=== PATIENT | female | born 1950 | race African-American/Black ===

== ENCOUNTER 2016-06-07 11:54 | Inpatient (IN) | payer MEDICARE, MEDICAID ==
[2016-06-07] MEDS ORDERED: MAGNESIUM SULFATE/D5W 1 GM/100 ML RTUPB IV ONE (12:07)
[2016-06-07] MEDS ORDERED: METHYLPREDNISOLONE INJ 125 MG/2 ML SDV ONE (12:07)
[2016-06-07] MEDS: MAGNESIUM SULFATE/D5W 100 ML IV SCH ×2 (12:10→15:14)
[2016-06-07] MEDS ORDERED: NORMAL SALINE 1000 ML 1,000 ML IV ONE ×2 (12:11→13:27)
--- NOTE | 2016-06-07 12:11 | ER Document Report ---
ED Respiratory Problem - General Mode of Arrival: Medic Information source: Patient, Emergency Med Personnel TRAVEL OUTSIDE OF THE [place] IN LAST 30 DAYS: No - HPI Patient complains to provider of: Other - Difficulty breathing Associated symptoms: Other - See above <HAILEY ZHANG - Last Filed: 06/07/16 13:29> <NUVIA JIMENEZ - Last Filed: 06/07/16 19:03> - General Chief Complaint: Breathing Difficulty Stated Complaint: DIFFICULTY BREATHING Notes: Patient is a 65 year old female, with a past medical history including lung cancer, COPD, and CHF, who presents to the emergency department complaining of breathing difficulty. Patient was at [facility] when staff report she became distressed and combative, when EMS arrived patient's sats were in the low 70s and she was anxious. Patient reports that she is very cold and denies any pain. (HAILEY ZHANG) - Related Data Allergies/Adverse Reactions: No Known Allergies Allergy (Verified 05/12/16 23:05) Home Medications: Current Home Medications Aspirin [Ecotrin 81 mg EC Tablet] 81 mg PO DAILY 06/07/16 [History] Canagliflozin [Invokana] 100 mg PO ACBRKFST 06/07/16 [History] Doxycycline Hyclate [Vibramycin 100 mg Tablet] 100 mg PO Q12 06/07/16 [History] Febuxostat [Uloric 80 mg Tablet] 80 mg PO DAILY 06/07/16 [History] Furosemide [Lasix 40 mg Tablet] 40 mg PO QAM 06/07/16 [History] Gabapentin 300 mg PO Q12 06/07/16 [History] Hydrocodone/Acetaminophen [Hydrocodon-Acetaminophen 5-325] 1 tab PO Q4HP PRN [History] Insulin Detemir [Levemir Flextouch] 30 units SQ DAILY 06/07/16 [History] Ipratropium/Albuterol Sulfate [Iprat-Albut 0.5-3(2.5) mg/3 ml] 3 ml NEB Q4HP PRN 06/07/16 [History] Lisinopril [Zestril] 2.5 mg PO DAILY 06/07/16 [History] Nitrofurantoin Monohyd/M-Cryst [Nitrofurantoin [place]-Mcr 100 mg] 100 mg PO Q12 [History] Nystatin [Mycostatin Cream 15 gm] 1 applic TOP BID 06/07/16 [History] Potassium Chloride [Klor-Con 10 Meq Tablet.sa] 20 meq PO Q12 06/07/16 [History] Prednisone 40 mg PO DAILY 06/07/16 [History] Tramadol HCl [Ultram 50 mg Tablet] 25 mg PO Q6HP PRN 06/07/16 [History] Past Medical History - General Information source: Patient, [facility] Records - Social History Smoking Status: Unknown if Ever Smoked Family History: Reviewed & Not Pertinent, CAD, DM, Other - Past Medical History Cardiac Medical History: Reports: Hx Congestive Heart Failure, Hx DVT - Distant history of same, Hx Hypercholesterolemia, Hx Hypertension Pulmonary Medical History: Reports: Hx Asthma - neb,inhalers, Hx Bronchitis, Hx COPD, Hx Pneumonia - hx of Endocrine Medical History: Reports: Hx Diabetes Mellitus Type 1 Renal/ Medical History: Reports: Hx End Stage Renal Disease Malignancy Medical History: Reports: Hx Lung Cancer GI Medical History: Reports: Hx Gastroesophageal Reflux Disease, Hx Ulcer Musculoskeltal Medical History: Reports Hx Arthritis - gout, Reports Hx Gout Skin Medical History: Reports Hx Cellulitis Past Surgical History: Reports: Hx Abdominal Surgery - hernia repair, Hx Section - 2 times, Hx Herniorrhaphy - Incisional hernia repair, recurrence of the umbilicus hernia. - Immunizations Hx Diphtheria, Pertussis, Tetanus Vaccination: No Hx Pneumococcal Vaccination: 08/13/10 <HAILEY ZHANG - Last Filed: 06/07/16 13:29> Review of Systems - Review of Systems Constitutional: See HPI, Chills EENT: No symptoms reported Cardiovascular: No symptoms reported Respiratory: See HPI, Other - Difficulty breathing. denies: Hurts to breathe Gastrointestinal: No symptoms reported Genitourinary: No symptoms reported Female Genitourinary: No symptoms reported Musculoskeletal: No symptoms reported Skin: No symptoms reported Hematologic/Lymphatic: No symptoms reported Neurological/Psychological: No symptoms reported -: Yes All other systems reviewed and negative <HAILEY ZHANG - Last Filed: 06/07/16 13:29> Physical Exam - Vital signs Interpretation: Tachycardic, Hypoxic, Other - extremis - General General appearance: Alert In distress: Severe - Respiratory - HEENT Head: Normocephalic, Atraumatic - Respiratory Respiratory status: Respiratory distress Chest status: Nontender Breath sounds: Decreased air movement, Wheezing - Expiratory bilaterally Chest palpation: Normal - Cardiovascular Rhythm: Tachycardia Heart sounds: Normal auscultation Murmur: No - Abdominal Inspection: Normal Distension: No distension Bowel sounds: Normal Tenderness: Nontender Organomegaly: No organomegaly - Back Back: Normal, Nontender - Neurological Neuro grossly intact: Yes Cognition: Normal Orientation: AAOx4 Rosine Coma Scale Eye Opening: Spontaneous Dottie Coma Scale Verbal: Oriented Dottie Coma Scale Motor: Obeys Commands Dottie Coma Scale Total: 15 Speech: Normal - Psychological Associated symptoms: Normal affect, Normal mood - Skin Skin Color: Pale <HAILEY ZHANG - Last Filed: 06/07/16 13:29> Course - Laboratory Result Diagrams: 06/07/16 12:10 06/07/16 12:10 <HAILEY ZHANG - Last Filed: 06/07/16 13:29> - Laboratory Result Diagrams: 06/07/16 12:10 06/07/16 12:10 <NUVIA JIMENEZ - Last Filed: 06/07/16 19:03> - Re-evaluation Re-evalutation: 06/07/16 Patient is a 65-year-old female who presented with severe respiratory distress. Patient has a history of COPD, CHF, and lung cancer. Patient was placed on BiPAP, given DuoNeb, Solu-Medrol, and magnesium. Considered intubating the patient due to her severe distress and drowsiness, but patient improved with BiPAP and medications. Patient was initially hypotensive. Port had been accessed prior to arrival. Port was reaccessed with a 20-gauge IV. Surgery had been consult for central line but due to better accessed report, this was canceled. Patient was started on antibiotics for her fever and probable pneumonia. Patient was discussed with the hospital service. She will be admitted to the [facility]. This is been discussed with the patient and family at length. Grateful for care. (NUVIA JIMENEZ) - Vital Signs Vital signs: Temp Pulse Resp BP Pulse Ox 98.7 F 130 H 32 H 100/56 L 99 06/07/16 18:42 06/07/16 12:30 06/07/16 18:42 06/07/16 18:42 06/07/16 18:42 (NUVIA JIMENEZ) - Laboratory Laboratory results interpreted by me: 06/07/16 06/07/16 06/07/16 12:10 12:10 12:10 WBC 15.7 H RBC 3.24 L Hgb 8.8 L Hct 29.0 L MCHC 30.4 L RDW 22.3 H Band Neutrophils % 1 L Metamyelocytes % 2 H Promyelocytes % 1 H Abs Neuts (Manual) 10.0 H ABG pO2 ABG Total CO2 ABG O2 Saturation Chloride 97 L Anion Gap 22 H BUN 51 H Creatinine 2.73 H Est GFR ( Amer) 21 L Est GFR (Non-Af Amer) 17 L Glucose 124 H Lactic Acid 8.3 H Alkaline Phosphatase 177 H Creatine Kinase 26 L Albumin 3.4 L Urine Protein Urine Glucose (UA) Urine Ketones Ur Leukocyte Esterase 06/07/16 06/07/16 06/07/16 12:50 16:16 16:35 WBC RBC Hgb Hct MCHC RDW Band Neutrophils % Metamyelocytes % Promyelocytes % Abs Neuts (Manual) ABG pO2 432.6 H ABG Total CO2 26.9 H ABG O2 Saturation 99.8 H Chloride Anion Gap BUN Creatinine Est GFR ( Amer) Est GFR (Non-Af Amer) Glucose Lactic Acid 2.2 H Alkaline Phosphatase Creatine Kinase Albumin Urine Protein 30 H Urine Glucose (UA) 150 H Urine Ketones TRACE H Ur Leukocyte Esterase MODERATE H (NUVIA JIMENEZ) Critical Care Note - Critical Care Note Total time excluding time spent on procedures (mins): 120 - evaluation and management of respiratory distress, multiple re-evaluations, management of hypotension,, management of fever, coordination of admission, counseling of patient and family <NUVIA JIMENEZ - Last Filed: 06/07/16 19:03> Discharge <HAILEY ZHANG - Last Filed: 06/07/16 13:29> - Discharge Admitting Provider: Di Ordonez Unit Admitted: [facility] <NUVIA JIMENEZ - Last Filed: 06/07/16 19:03> - Discharge Clinical Impression: COPD exacerbation, Respiratory distress ARF (acute renal failure) Qualifiers: Acute renal failure type: unspecified Qualified Code(s): N17.9 - Acute kidney failure, unspecified Lung cancer Qualifiers: Laterality: unspecified laterality Lung location: unspecified part of lung Qualified Code(s): C34.90 - Malignant neoplasm of unspecified part of unspecified bronchus or lung CHF exacerbation Qualifiers: Congestive heart failure type: unspecified congestive heart failure type Qualified Code(s): I50.9 - Heart failure, unspecified Pneumonia Qualifiers: Pneumonia type: due to unspecified organism Laterality: unspecified laterality Lung location: unspecified part of lung Qualified Code(s): J18.9 - Pneumonia, unspecified organism Condition: Stable Disposition: ADMITTED INPATIENT Scribe Attestation: 06/07/16 19:03 I personally performed the services described in the documentation, reviewed and edited the documentation which was dictated to the scribe in my presence, and it accurately records my words and actions. (NUVIA JIMENEZ) Scribe Documentation - Scribe Written by Scribe:: Hailey Zhang 06/07/16 acting as scribe for :: Sam <HAILEY ZHANG - Last Filed: 06/07/16 13:29>
[2016-06-07] MEDS ORDERED: ETOMIDATE INJ/PF 20 MG/10 ML SDV IV ONE (12:20)
[2016-06-07] MEDS ORDERED: IPRATROPIUM/ALBUTEROL 0.5-2.5 MG/3 ML AMPUL NEB ONE (12:26)
[2016-06-07] MEDS ORDERED: METHYLPREDNISOLONE INJ 125 MG/2 ML SDV IV ONE (12:26)
[2016-06-07 12:31] LABS: HEMOGLOBIN 8.8 g/dL (12.0-15.5); HGB HCT DIFFERENCE -2.6; MEAN CORPUSCULAR HEMOGLOBIN 27.2 pg (27.0-33.4); MEAN CORPUSCULAR HGB CONC 30.4 g/dL (32.0-36.0); MEAN CORPUSCULAR VOLUME 89 fl (80-97); RED BLOOD COUNT 3.24 10^6/uL (3.72-5.28); RED CELL DISTRIBUTION WIDTH 22.3 % (11.5-14.0); WHITE BLOOD COUNT 15.7 10^3/uL (4.0-10.5)
[2016-06-07 12:34] LABS: PROTHROMBIN TIME 15.2 SEC (11.4-15.4)
[2016-06-07 12:48] LABS: ANISOCYTOSIS 3+; BAND NEUTROPHILS % (MANUAL) 1 % (3-5); BASOPHILS % (MANUAL) 0 % (0-2); EOSINOPHILS % (MANUAL) 0 % (0-6); HYPOCHROMASIA 1+; LYMPHOCYTES % (MANUAL) 28 % (13-45); OVALOCYTES 2+; PLATELET CLUMPS PRESENT; POIKILOCYTOSIS 2+; POLYCHROMASIA SLIGHT; ROULEAUX SLIGHT; TOTAL CELLS COUNTED 100; TOXIC GRANULATION 1+; TOXIC VACUOLATION PRESENT
[2016-06-07] MEDS ORDERED: CEFEPIME 2 GM/D5W RTU 50 ML IV ONE (12:53)
[2016-06-07] MEDS ORDERED: LEVOFLOXACIN 750 MG/D5W RTU 150 ML IV ONE ×2 (12:53→13:51)
[2016-06-07 12:54] LABS: CREATINE KINASE MB 0.43 ng/mL (<4.55)
[2016-06-07 12:56] LABS: ALANINE AMINOTRANSFERASE 19 U/L (9-52); ALBUMIN 3.4 g/dL (3.5-5.0); ALKALINE PHOSPHATASE 177 U/L (38-126); ASPARTATE AMINO TRANSFERASE 35 U/L (14-36); BILIRUBIN,TOTAL 0.9 mg/dL (0.2-1.3); BLOOD UREA NITROGEN 51 mg/dL (7-20); CALCIUM 9.2 mg/dL (8.4-10.2); CARBON DIOXIDE 25 mmol/L (22-30); CHLORIDE 97 mmol/L (98-107); CREATINE KINASE 26 U/L (30-135); CREATININE RESULT 2.73 mg/dL (0.52-1.25); GLUCOSE 124 mg/dL (75-110); POTASSIUM 4.2 mmol/L (3.6-5.0); TOTAL PROTEIN 7.6 g/dL (6.3-8.2); TROPONIN I 0.04 ng/mL
[2016-06-07 13:03] LABS: ARTERIAL BLOOD BASE EXCESS 0.1 mmol/L; ARTERIAL BLOOD O2 SATURATION 99.8 % (94-98)
[2016-06-07 13:08] LABS: ANION GAP 22 (5-19); SODIUM 143.7 mmol/L (137-145)
--- NOTE | 2016-06-07 13:10 | EKG REPORT ---
SEVERITY:- ABNORMAL ECG - SINUS TACHYCARDIA BORDERLINE ST ELEVATION, INFERIOR LEADS , CLINICAL CORRELATION NEEDED. BORDERLINE PROLONGED QT INTERVAL : Confirmed by: Joss Senior MD 07-Jun-2016 13:10:33
[2016-06-07] MEDS ORDERED: VANCOMYCIN HCL INJ 1000 MG VIAL IV ONE (13:51)
[2016-06-07] MEDS ORDERED: CEFEPIME 1 GM/D5W RTU 50 ML IV ONE (13:51)
[2016-06-07] MEDS ORDERED: CEFEPIME HCL 2 GM in DEXTROSE 5%-WATER 50 ML IV ONE (14:00)
[2016-06-07 16:38] LABS: APPEARANCE,URINE CLOUDY; BILIRUBIN,URINE NEGATIVE (NEGATIVE); GLUCOSE, URINE 150 mg/dL (NEGATIVE); KETONES,URINE TRACE mg/dL (NEGATIVE); LEUKOCYTE ESTERASE,URINE MODERATE (NEGATIVE); NITRITE,URINE NEGATIVE (NEGATIVE); PROTEIN,URINE 30 mg/dL (NEGATIVE); URINE SPECIFIC GRAVITY 1.019; UROBILINOGEN,URINE NEGATIVE mg/dL (<2.0)
[2016-06-07] MEDS ORDERED: ACETAMINOPHEN 325 MG TABLET PO PRN (17:08)
[2016-06-07] MEDS ORDERED: NORMAL SALINE 1000 ML 1,000 ML IV PRN (17:08)
[2016-06-07] MEDS ORDERED: DEXTROSE 5%-WATER 250 ML with NOREPINEPHRINE BITARTRATE 4 MG IV PRN ×2 (17:17)
[2016-06-07] MEDS ORDERED: GLUCAGON,HUMAN RECOMB 1 MG INJ IM PRN (17:25)
[2016-06-07] MEDS ORDERED: DEXTROSE 50%-WATER 25 GM/50 ML DISP.SYRIN IV PRN ×2 (17:25)
[2016-06-07] MEDS ORDERED: DEXTROSE 40% GEL 15 GM TUBE PO PRN ×2 (17:25)
[2016-06-07] MEDS ORDERED: NOREPINEPHRINE BITARTRATE INJ/PF 4 MG/4 ML SDV IV ONE (17:37)
--- NOTE | 2016-06-07 17:44 | PDOC H&P ---
History of Present Illness Admission Date/PCP: 06/07/16 15:12 MARQUIS JADE Patient complains of: Shortness of breath History of Present Illness: SAL MEDEL is a 65 year old female with history of COPD, lung cancer stage III , diastolic heart failure, recently discharged from the hospital for pneumonia and sepsis brought to the emergency room because of shortness of breath. The patient was discharged to weeks ago for pneumonia and sepsis and patient reports that she is feeling better. She has chronic shortness of breath especially on exertion. Family reports that she has not really gotten any better. There is no wheezing. Shortness of breath is about the same as well as cough with scanty yellowish phlegm. There is no pleurisy. No fever or sweating noted as well. Patient sustained a fall 2 days ago without significant injury. The patient has complained of back pain and was seen in the emergency room where she was diagnosed of a UTI and reportedly given antibiotics. She just completed antibiotics for the pneumonia. She went to the oncology clinic for her chemotherapy, apparently patient found to be hypotensive and tachycardic and reportedly having shortness of breath and therefore the patient was sent to the emergency room. Patient was given 2-3 L of saline bolus and blood pressures in the low normal side. She was hypoxic O2 sat in the 80s and was placed on BiPAP. WBC was elevated but she is on steroids. Lactic acid level was high. Broad-spectrum antibiotic was administered and the patient was referred for admission. Past Medical History Cardiac Medical History: Reports: Congestive Heart Failure, DVT - Distant history of same, Hyperlipidema, Hypertension Denies: Coronary Artery Disease, Myocardial Infarction, Pulmonary Embolism Pulmonary Medical History: Reports: Asthma - neb,inhalers, Bronchitis, Chronic Obstructive Pulmonary Disease (COPD), Pneumonia - hx of Denies: Respiratory Failure, Sleep Apnea, Tuberculosis Neurological Medical History: Denies: Seizures Endocrine Medical History: Reports: Diabetes Mellitus Type 1 Denies: Diabetes Mellitus Type 2 Renal/ Medical History: Reports: End Stage Renal Disease Malignancy Medical History: Reports: Lung Cancer GI Medical History: Reports: Gastroesophageal Reflux Disease Denies: Cirrhosis, Hepatitis Musculoskeltal Medical History: Reports: Arthritis - gout, Gout Psychiatric Medical History: Denies: Depression Hematology: Reports: Anemia, Bleeding Tendencies Past Surgical History Past Surgical History: Reports: Section - 2 times, Herniorrhaphy - Incisional hernia repair, recurrence of the umbilicus hernia. Denies: Amputation Social History Smoking Status: Unknown if Ever Smoked Frequency of Alcohol Use: None Hx Recreational Drug Use: No Drugs: None Hx Prescription Drug Abuse: No Family History Family History: CAD, DM, Other Parental Family History Reviewed: Yes Children Family History Reviewed: Yes Sibling(s) Family History Reviewed.: Yes Medication/Allergy Home Medications: Aspirin [Ecotrin 81 mg EC Tablet] 81 mg PO DAILY 06/07/16 Canagliflozin [Invokana] 100 mg PO ACBRKFST 06/07/16 Doxycycline Hyclate [Vibramycin 100 mg Tablet] 100 mg PO Q12 06/07/16 Febuxostat [Uloric 80 mg Tablet] 80 mg PO DAILY 06/07/16 Furosemide [Lasix 40 mg Tablet] 40 mg PO QAM 06/07/16 Gabapentin 300 mg PO Q12 06/07/16 Hydrocodone/Acetaminophen [Hydrocodon-Acetaminophen 5-325] 1 tab PO Q4HP PRN Insulin Detemir [Levemir Flextouch] 30 units SQ DAILY 06/07/16 Ipratropium/Albuterol Sulfate [Iprat-Albut 0.5-3(2.5) mg/3 ml] 3 ml NEB Q4HP PRN 06/07/16 Lisinopril [Zestril] 2.5 mg PO DAILY 06/07/16 Nitrofurantoin Monohyd/M-Cryst [Nitrofurantoin [place]-Mcr 100 mg] 100 mg PO Q12 Nystatin [Mycostatin Cream 15 gm] 1 applic TOP BID 06/07/16 Potassium Chloride [Klor-Con 10 Meq Tablet.sa] 20 meq PO Q12 06/07/16 Prednisone 40 mg PO DAILY 06/07/16 Tramadol HCl [Ultram 50 mg Tablet] 25 mg PO Q6HP PRN 06/07/16 Allergies/Adverse Reactions: No Known Allergies Allergy (Verified 05/12/16 23:05) Review of Systems Constitutional: PRESENT: fever(s). ABSENT: chills, headache(s), night sweats, weight gain, weight loss Eyes: ABSENT: visual disturbances Ears: ABSENT: hearing changes Nose, Mouth, and Throat: ABSENT: mouth pain, sore throat Cardiovascular: PRESENT: dyspnea on exertion - Chronic, edema - Chronic. ABSENT : chest pain, orthropnea, palpitations Respiratory: PRESENT: cough - Chronic, dyspnea, sputum. ABSENT: hemoptysis Gastrointestinal: ABSENT: abdominal pain, constipation, diarrhea, hematemesis, hematochezia, melena, nausea, vomiting Genitourinary: ABSENT: difficulty urinating, dysuria, hematuria Musculoskeletal: PRESENT: back pain - Mainly on the left. ABSENT: joint swelling Integumentary: ABSENT: pruritus, rash, wounds - Prior decubitus ulcer reported has healed Neurological: ABSENT: abnormal gait, abnormal speech, confusion, dizziness, focal weakness, syncope Psychiatric: ABSENT: anxiety, depression, homidical ideation, suicidal ideation Endocrine: ABSENT: cold intolerance, heat intolerance, polydipsia, polyphagia, polyuria Hematologic/Lymphatic: PRESENT: easy bruising. ABSENT: easy bleeding Physical Exam Vital Signs: Temp Pulse Resp BP Pulse Ox 99.0 F 130 H 33 H 101/73 100 06/07/16 16:50 06/07/16 12:30 06/07/16 16:50 06/07/16 16:50 06/07/16 16:40 General appearance: PRESENT: no acute distress, morbidly obese, other - On BiPAP Head exam: PRESENT: atraumatic, normocephalic Eye exam: PRESENT: conjunctiva pink, EOMI, PERRLA. ABSENT: scleral icterus Ear exam: PRESENT: normal external ear exam. ABSENT: drainage Mouth exam: PRESENT: dry mucosa, neck supple, tongue midline Teeth exam: PRESENT: poor dentation Throat exam: ABSENT: post pharyngeal erythema, tonsillar erythema Neck exam: ABSENT: carotid bruit, JVD, lymphadenopathy, thyromegaly Respiratory exam: PRESENT: decreased breath sounds, rhonchi - few bilateral. ABSENT: rales, wheezes Cardiovascular exam: PRESENT: RRR, tachycardia. ABSENT: diastolic murmur, rubs , systolic murmur Pulses: PRESENT: normal dorsalis pedis pul Vascular exam: PRESENT: normal capillary refill GI/Abdominal exam: PRESENT: distended - Obese, normal bowel sounds, soft. ABSENT: guarding, mass, organolmegaly, rebound, tenderness Rectal exam: PRESENT: deferred Extremities exam: PRESENT: full ROM, +1 edema. ABSENT: calf tenderness, clubbing Neurological exam: PRESENT: alert, awake, oriented to situation Psychiatric exam: PRESENT: appropriate affect, normal mood. ABSENT: homicidal ideation, suicidal ideation Skin exam: PRESENT: dry, intact, warm. ABSENT: cyanosis, rash Results Laboratory Results: 06/07/16 06/07/16 16:16 16:35 Lactic Acid 2.2 H Urine Color YELLOW Urine Appearance CLOUDY Urine pH 5.0 Ur Specific [place] 1.019 Urine Protein 30 H Urine Glucose (UA) 150 H Urine Ketones TRACE H Urine Blood NEGATIVE Urine Nitrite NEGATIVE Ur Leukocyte Esterase MODERATE H Urine WBC (Auto) 52 Urine RBC (Auto) 1 Impressions: Chest X-Ray 06/07/16 12:12 IMPRESSION: CARDIAC ENLARGEMENT. VASCULAR CONGESTION. ASYMMETRIC HAZY DENSITY IN THE LEFT HEMITHORAX PROBABLY DUE TO MILD ASYMMETRIC PULMONARY EDEMA AND/OR PLEURAL EFFUSION. Assessment & Plan - Diagnosis (1) Acute on chronic respiratory failure with hypoxemia Is this a current diagnosis for this admission?: Yes (2) Pneumonia Qualifiers: Pneumonia type: due to unspecified organism Laterality: unspecified laterality Lung location: unspecified part of lung Qualified Code(s) : J18.9 - Pneumonia, unspecified organism Is this a current diagnosis for this admission?: Yes (3) Sepsis Qualifiers: Sepsis type: sepsis due to unspecified organism Qualified Code(s): A41.9 - Sepsis, unspecified organism Is this a current diagnosis for this admission?: Yes (4) Hypotension Qualifiers: Hypotension type: unspecified hypotension type Qualified Code(s): I95.9 - Hypotension, unspecified Is this a current diagnosis for this admission?: Yes (5) TIMO (acute kidney injury) Is this a current diagnosis for this admission?: Yes (6) Anemia Qualifiers: Anemia type: unspecified type Qualified Code(s): D64.9 - Anemia, unspecified Is this a current diagnosis for this admission?: Yes (7) COPD (chronic obstructive pulmonary disease) Qualifiers: COPD type: emphysema Emphysema type: unspecified Qualified Code( s): J43.9 - Emphysema, unspecified Is this a current diagnosis for this admission?: Yes (8) Hip pain Qualifiers: Laterality: left Qualified Code(s): M25.552 - Pain in left hip Is this a current diagnosis for this admission?: Yes (9) Hypertension Qualifiers: Hypertension type: essential hypertension Qualified Code(s): I10 - Essential (primary) hypertension Is this a current diagnosis for this admission?: Yes (10) Morbid obesity with BMI of 45.0-49.9, adult Is this a current diagnosis for this admission?: Yes (11) Diabetes mellitus Qualifiers: Diabetes mellitus type: type 2 Diabetes mellitus complication status: with unspecified complications Diabetes mellitus intermediate frame tender insulin use: with detention use Qualified Code(s): E11.8 - Type 2 diabetes mellitus with unspecified complications; Z79.4 - snf (current) use of insulin Is this a current diagnosis for this admission?: Yes (12) GERD (gastroesophageal reflux disease) Qualifiers: Esophagitis presence: without esophagitis Qualified Code(s): K21.9 - Gastro-esophageal reflux disease without esophagitis Is this a current diagnosis for this admission?: Yes (13) Chronic CHF Qualifiers: Congestive heart failure type: diastolic Qualified Code(s): I50.32 - Chronic diastolic (congestive) heart failure Is this a current diagnosis for this admission?: Yes (14) Hyperlipidemia Qualifiers: Hyperlipidemia type: unspecified Qualified Code(s): E78.5 - Hyperlipidemia, unspecified Is this a current diagnosis for this admission?: Yes (15) Obstructive sleep apnea Is this a current diagnosis for this admission?: Yes (16) Lung cancer Qualifiers: Laterality: unspecified laterality Lung location: unspecified part of lung Qualified Code(s): C34.90 - Malignant neoplasm of unspecified part of unspecified bronchus or lung Is this a current diagnosis for this admission?: Yes - Time Time Spent: 50 to 70 Minutes Anticipated discharge: Home, Home with Homehealth - Inpatient Certification Based on my medical assessment, after consideration of the patient's comorbidities, presenting symptoms, or acuity I expect that the services needed warrant INPATIENT care.: Yes I certify that my determination is in accordance with my understanding of Medicare's requirements for reasonable and necessary INPATIENT services [42 CFR 412.3e].: Yes Medical Necessity: Failure to Improve With Outpatient Therapy, Need Close Monitoring Due to Risk of Patient Decompensation, Need For IV Fluids, Need For Continuous Telemetry Monitoring, Need for IV Antibiotics, Risk of Complication if Not Cared For in Hospital Post Hospital Care: D/C Clinic Office Coordinator Documentation - Plan Summary Plan Summary: The patient will be admitted to ICU. We will begin levophed for hypotension. We will continue normal saline hydration and monitor creatinine. We will send cultures and begin the patient on broad-spectrum antibiotic with cefepime and Levaquin. We will obtain a CT scan of the chest to better define the patient's infiltrate. She will be on DVT prophylaxis with heparin and BiPAP to continue and morphine per respiratory protocol. I will continue the patient's steroids. Add nebulizers. We will hold antihypertensive medications. We will obtain a renal ultrasound. Further testing depends on the initial evaluation as outlined above.
[2016-06-07] MEDS: IPRATROPIUM/ALBUTEROL 0.5-2.5 MG/3 ML AMPUL NEB SCH (20:38)
[2016-06-07 21:00] LABS: VENOUS BLOOD BASE EXCESS 2.8 mmol/L; VENOUS BLOOD HCO3 29.1 mmol/L (20-32); VENOUS BLOOD PCO2 54.6 mmHg (35-63); VENOUS BLOOD PH 7.35 (7.30-7.42)
[2016-06-07] MEDS ORDERED: CEFEPIME HCL 2 GM in DEXTROSE 5%-WATER 50 ML IV SCH (22:00)
[2016-06-07] MEDS ORDERED: CEFEPIME 2 GM/D5W RTU 50 ML IV SCH (22:00)
[2016-06-08] MEDS: GUAIFENESIN 600 MG TABLET.SA PO SCH ×3 (00:10→22:35)
[2016-06-08] MEDS: GABAPENTIN 300 MG CAPSULE PO SCH ×3 (00:10→22:35)
[2016-06-08] MEDS: HEPARIN SOD (PORCINE) 5,000 UNIT/ML 1 ML SYRINGE SUBCUT SCH ×4 (00:10→22:35)
[2016-06-08 01:57] LABS: VENOUS BLOOD BASE EXCESS 1.6 mmol/L; VENOUS BLOOD HCO3 28.2 mmol/L (20-32); VENOUS BLOOD PCO2 54.2 mmHg (35-63); VENOUS BLOOD PH 7.33 (7.30-7.42)
[2016-06-08] MEDS: IPRATROPIUM/ALBUTEROL 0.5-2.5 MG/3 ML AMPUL NEB SCH ×4 (02:20→20:18)
[2016-06-08] MEDS: HYDROCODONE/ACETAMINOPHEN 5-325 MG TABLET PO PRN (03:20)
[2016-06-08] MEDS: LANSOPRAZOLE 30 MG TAB.RAP.DR PO SCH ×2 (06:25→18:35)
[2016-06-08 07:59] LABS: HGB HCT DIFFERENCE -1.2; MEAN CORPUSCULAR HEMOGLOBIN 27.3 pg (27.0-33.4); MEAN CORPUSCULAR HGB CONC 31.5 g/dL (32.0-36.0); MEAN CORPUSCULAR VOLUME 87 fl (80-97); RED BLOOD COUNT 2.78 10^6/uL (3.72-5.28); RED CELL DISTRIBUTION WIDTH 21.7 % (11.5-14.0); VENOUS BLOOD BASE EXCESS 2.1 mmol/L; VENOUS BLOOD HCO3 27.9 mmol/L (20-32); VENOUS BLOOD PCO2 49.1 mmHg (35-63); VENOUS BLOOD PH 7.37 (7.30-7.42); WHITE BLOOD COUNT 12.6 10^3/uL (4.0-10.5)
[2016-06-08 08:05] LABS: HEMOGLOBIN 7.6 g/dL (12.0-15.5)
[2016-06-08 08:20] LABS: ANISOCYTOSIS 2+; BAND NEUTROPHILS % (MANUAL) 1 % (3-5); BASOPHILS % (MANUAL) 0 % (0-2); EOSINOPHILS % (MANUAL) 0 % (0-6); HYPOCHROMASIA 2+; LYMPHOCYTES % (MANUAL) 3 % (13-45); NUCLEATED RED BLOOD CELLS 1 /100 WBC (0); OVALOCYTES 1+; POIKILOCYTOSIS 1+; POLYCHROMASIA SLIGHT; ROULEAUX SLIGHT; TOTAL CELLS COUNTED 100; TOXIC GRANULATION SLIGHT
[2016-06-08 08:25] LABS: ANION GAP 13 (5-19); BLOOD UREA NITROGEN 52 mg/dL (7-20); CALCIUM 8.7 mg/dL (8.4-10.2); CARBON DIOXIDE 28 mmol/L (22-30); CHLORIDE 104 mmol/L (98-107); CREATININE RESULT 2.12 mg/dL (0.52-1.25); GLUCOSE 144 mg/dL (75-110); POTASSIUM 3.8 mmol/L (3.6-5.0)
[2016-06-08] MEDS ORDERED: NORMAL SALINE 250 ML IV PRN ×2 (08:29)
[2016-06-08] MEDS ORDERED: NORMAL SALINE 1000 ML 1,000 ML IV PRN (08:29)
[2016-06-08] MEDS ORDERED: FUROSEMIDE INJ/PF 40 MG/4 ML SDV IV PRN (08:29)
--- NOTE | 2016-06-08 08:43 | PDOC PROGRESS REPORT ---
Subjective Progress Note for:: 06/08/16 Subjective:: Feeling better this morning. Able to tolerate oral intake off the BiPAP. Patient is off levophed. Reportedly the medication was not utilized. No reported temperature spikes or diarrhea. Patient denies any discomfort at this time. Physical Exam Vital Signs: Temp Pulse Resp BP Pulse Ox 97.2 F 93 26 H 113/72 100 06/08/16 08:05 06/08/16 08:00 06/08/16 08:00 06/08/16 03:00 06/08/16 08:00 Pulse Oximeter Continuous Start: 06/07/16 17: 09 Freq: RTQ4 Status: Active Document 06/08/16 08:00 [facility] (Rec: 06/08/16 08:14 [facility] [email or web address]) Pulse Oximetry Assessment Oxygen Saturation (92-100) 100 Oxygen Flow Rate (L/min) 4 Oxygen Delivery Method Nasal Cannula Equipment Usage Equipment Standby Continuous SpO2 Machine # - General appearance: PRESENT: no acute distress, cooperative, morbidly obese Head exam: PRESENT: normocephalic Eye exam: PRESENT: EOMI Mouth exam: PRESENT: dry mucosa, neck supple Neck exam: ABSENT: JVD Respiratory exam: PRESENT: rhonchi - Scattered bilateral, unlabored. ABSENT: wheezes Cardiovascular exam: PRESENT: RRR. ABSENT: gallop GI/Abdominal exam: PRESENT: distended - Obese, hypoactive bowel sounds, soft. ABSENT: tenderness Extremities exam: PRESENT: +1 edema Neurological exam: PRESENT: alert, awake Skin exam: PRESENT: dry, warm. ABSENT: cyanosis Results Laboratory Results: 06/08/16 07:45 06/08/16 07:45 06/07/16 06/07/16 06/08/16 17:45 20:35 01:46 WBC RBC Hgb Hct MCV MCH MCHC RDW Plt Count Seg Neutrophils % Lymphocytes % Monocytes % Eosinophils % Basophils % Absolute Neutrophils Absolute Lymphocytes Absolute Monocytes Absolute Eosinophils Absolute Basophils Carbonic Acid Cancelled HCO3/H2CO3 Ratio Cancelled ABG pH Cancelled ABG pCO2 Cancelled ABG pO2 Cancelled ABG HCO3 Cancelled ABG O2 Saturation Cancelled ABG Base Excess Cancelled VBG pH 7.35 7.33 VBG pCO2 54.6 54.2 VBG HCO3 29.1 28.2 VBG Base Excess 2.8 1.6 FiO2 Cancelled Sodium Potassium Chloride Carbon Dioxide Anion Gap BUN Creatinine Est GFR ( Amer) Est GFR (Non-Af Amer) Glucose Calcium 06/08/16 06/08/16 06/08/16 07:45 07:45 07:45 WBC 12.6 H RBC 2.78 L Hgb 7.6 L Hct 24.0 L MCV 87 MCH 27.3 MCHC 31.5 L RDW 21.7 H Plt Count 186 Seg Neutrophils % Not Reportable Lymphocytes % Not Reportable Monocytes % Not Reportable Eosinophils % Not Reportable Basophils % Not Reportable Absolute Neutrophils Not Reportable Absolute Lymphocytes Not Reportable Absolute Monocytes Not Reportable Absolute Eosinophils Not Reportable Absolute Basophils Not Reportable Carbonic Acid HCO3/H2CO3 Ratio ABG pH ABG pCO2 ABG pO2 ABG HCO3 ABG O2 Saturation ABG Base Excess VBG pH 7.37 VBG pCO2 49.1 VBG HCO3 27.9 VBG Base Excess 2.1 FiO2 Sodium 145.0 Potassium 3.8 Chloride 104 Carbon Dioxide 28 Anion Gap 13 BUN 52 H Creatinine 2.12 H Est GFR ( Amer) 28 L Est GFR (Non-Af Amer) 23 L Glucose 144 H Calcium 8.7 Impressions: Chest X-Ray 06/07/16 12:12 IMPRESSION: CARDIAC ENLARGEMENT. VASCULAR CONGESTION. ASYMMETRIC HAZY DENSITY IN THE LEFT HEMITHORAX PROBABLY DUE TO MILD ASYMMETRIC PULMONARY EDEMA AND/OR PLEURAL EFFUSION. Renal Ultrasound 06/08/16 00:00 IMPRESSION: No acute findings; limited. Assessment & Plan - Diagnosis (1) Acute on chronic respiratory failure with hypoxemia Is this a current diagnosis for this admission?: Yes (2) Pneumonia Qualifiers: Pneumonia type: due to unspecified organism Laterality: unspecified laterality Lung location: unspecified part of lung Qualified Code(s) : J18.9 - Pneumonia, unspecified organism Is this a current diagnosis for this admission?: Yes (3) Sepsis Qualifiers: Sepsis type: sepsis due to unspecified organism Qualified Code(s): A41.9 - Sepsis, unspecified organism Is this a current diagnosis for this admission?: Yes (4) Hypotension Qualifiers: Hypotension type: unspecified hypotension type Qualified Code(s): I95.9 - Hypotension, unspecified Is this a current diagnosis for this admission?: Yes (5) TIMO (acute kidney injury) Is this a current diagnosis for this admission?: Yes (6) Anemia Qualifiers: Anemia type: unspecified type Qualified Code(s): D64.9 - Anemia, unspecified Is this a current diagnosis for this admission?: Yes (7) COPD (chronic obstructive pulmonary disease) Qualifiers: COPD type: emphysema Emphysema type: unspecified Qualified Code( s): J43.9 - Emphysema, unspecified Is this a current diagnosis for this admission?: Yes (8) Hip pain Qualifiers: Laterality: left Qualified Code(s): M25.552 - Pain in left hip Is this a current diagnosis for this admission?: Yes (9) Hypertension Qualifiers: Hypertension type: essential hypertension Qualified Code(s): I10 - Essential (primary) hypertension Is this a current diagnosis for this admission?: Yes (10) Morbid obesity with BMI of 45.0-49.9, adult Is this a current diagnosis for this admission?: Yes (11) Diabetes mellitus Qualifiers: Diabetes mellitus type: type 2 Diabetes mellitus complication status: with unspecified complications Diabetes mellitus director long term care insulin use: with chcf use Qualified Code(s): E11.8 - Type 2 diabetes mellitus with unspecified complications; Z79.4 - remote computer terminal operator (current) use of insulin Is this a current diagnosis for this admission?: Yes (12) GERD (gastroesophageal reflux disease) Qualifiers: Esophagitis presence: without esophagitis Qualified Code(s): K21.9 - Gastro-esophageal reflux disease without esophagitis Is this a current diagnosis for this admission?: Yes (13) Chronic CHF Qualifiers: Congestive heart failure type: diastolic Qualified Code(s): I50.32 - Chronic diastolic (congestive) heart failure Is this a current diagnosis for this admission?: Yes (14) Hyperlipidemia Qualifiers: Hyperlipidemia type: unspecified Qualified Code(s): E78.5 - Hyperlipidemia, unspecified Is this a current diagnosis for this admission?: Yes (15) Obstructive sleep apnea Is this a current diagnosis for this admission?: Yes (16) Lung cancer Qualifiers: Laterality: unspecified laterality Lung location: unspecified part of lung Qualified Code(s): C34.90 - Malignant neoplasm of unspecified part of unspecified bronchus or lung Is this a current diagnosis for this admission?: Yes - Time Time Spent with patient: 25-34 minutes - Plan Summary Plan Summary: We will discontinue Levaquin and begin the patient on vancomycin intravenously. Follow cultures. Continue Primaxin for now. Awaiting CT scan of the chest. Awaiting hip x-ray as well on the left. We will try to wean the patient's BiPAP today. Discontinue the Levophed and transferred the patient to [facility]. Transfuse 2 units of packed RBC. Check anemia panel. Check stool for blood. Continue to monitor.
[2016-06-08] MEDS ORDERED: VANCOMYCIN HCL INJ 1000 MG VIAL IV SCH (10:00)
[2016-06-08] MEDS ORDERED: LEVOFLOXACIN 750 MG/D5W RTU 150 ML IV SCH (10:00)
[2016-06-08] MEDS: ASPIRIN 81 MG TABLET, ENT COATED PO SCH (10:24)
[2016-06-08] MEDS: PREDNISONE 20 MG TABLET PO SCH (10:25)
[2016-06-08 10:39] LABS: FOLATE 4.29 ng/mL (>2.76)
[2016-06-08] MEDS: VANCOMYCIN HCL 1,000 MG in DEXTROSE 5%-WATER 250 ML IV SCH (11:26)
[2016-06-08 12:52] LABS: PATH REVIEW PATHOLOGIST REVIEWED
[2016-06-08] MEDS: INSULIN DETEMIR 100 UNIT/ML 3 ML PEN SUBCUT SCH (13:33)
[2016-06-08] MEDS ORDERED: CEFEPIME 1 GM/D5W RTU 1 GM/50 ML RTUPB IV SCH (14:00)
[2016-06-08 21:47] LABS: HEMOGLOBIN 9.1 g/dL (12.0-15.5); HGB HCT DIFFERENCE -0.7; MEAN CORPUSCULAR HEMOGLOBIN 28.1 pg (27.0-33.4); MEAN CORPUSCULAR HGB CONC 32.4 g/dL (32.0-36.0); MEAN CORPUSCULAR VOLUME 87 fl (80-97); RED BLOOD COUNT 3.23 10^6/uL (3.72-5.28); RED CELL DISTRIBUTION WIDTH 19.1 % (11.5-14.0); WHITE BLOOD COUNT 14.9 10^3/uL (4.0-10.5)
[2016-06-08 22:10] LABS: BAND NEUTROPHILS % (MANUAL) 2 % (3-5); BASOPHILS % (MANUAL) 0 % (0-2); EOSINOPHILS % (MANUAL) 0 % (0-6); LYMPHOCYTES % (MANUAL) 3 % (13-45); TOTAL CELLS COUNTED 100
[2016-06-08 22:13] LABS: ANISOCYTOSIS 2+; OVALOCYTES SLIGHT; POIKILOCYTOSIS SLIGHT; POLYCHROMASIA SLIGHT
[2016-06-08 22:16] LABS: TOXIC GRANULATION SLIGHT
[2016-06-09] MEDS: IPRATROPIUM/ALBUTEROL 0.5-2.5 MG/3 ML AMPUL NEB SCH ×4 (01:54→20:05)
[2016-06-09] MEDS: HYDROCODONE/ACETAMINOPHEN 5-325 MG TABLET PO PRN ×3 (04:22→19:24)
[2016-06-09] MEDS: HEPARIN SOD (PORCINE) 5,000 UNIT/ML 1 ML SYRINGE SUBCUT SCH ×3 (06:07→21:37)
[2016-06-09] MEDS: LANSOPRAZOLE 30 MG TAB.RAP.DR PO SCH ×2 (06:07→18:25)
[2016-06-09 06:08] LABS: HEMATOCRIT 26.7 % (36.0-47.0); HEMOGLOBIN 8.8 g/dL (12.0-15.5); HGB HCT DIFFERENCE -0.3; MEAN CORPUSCULAR HEMOGLOBIN 28.7 pg (27.0-33.4); MEAN CORPUSCULAR HGB CONC 33.1 g/dL (32.0-36.0); MEAN CORPUSCULAR VOLUME 87 fl (80-97); RED BLOOD COUNT 3.09 10^6/uL (3.72-5.28); RED CELL DISTRIBUTION WIDTH 19.1 % (11.5-14.0); WHITE BLOOD COUNT 15.4 10^3/uL (4.0-10.5)
[2016-06-09 06:28] LABS: ANION GAP 12 (5-19); BLOOD UREA NITROGEN 42 mg/dL (7-20); CALCIUM 8.3 mg/dL (8.4-10.2); CARBON DIOXIDE 29 mmol/L (22-30); CHLORIDE 105 mmol/L (98-107); CREATININE RESULT 1.58 mg/dL (0.52-1.25); GLUCOSE 149 mg/dL (75-110); POTASSIUM 3.3 mmol/L (3.6-5.0)
[2016-06-09] MEDS: GUAIFENESIN 600 MG TABLET.SA PO SCH ×2 (09:46→21:38)
[2016-06-09] MEDS: PREDNISONE 20 MG TABLET PO SCH (09:46)
[2016-06-09] MEDS: INSULIN DETEMIR 100 UNIT/ML 3 ML PEN SUBCUT SCH (09:46)
[2016-06-09] MEDS: GABAPENTIN 300 MG CAPSULE PO SCH ×2 (09:46→21:38)
[2016-06-09] MEDS: VANCOMYCIN HCL 1,000 MG in DEXTROSE 5%-WATER 250 ML IV SCH (09:47)
[2016-06-09] MEDS: ASPIRIN 81 MG TABLET, ENT COATED PO SCH (09:47)
[2016-06-09] MEDS ORDERED: LEVOFLOXACIN 750 MG/D5W RTU 750 MG/150 ML RTUPB IV SCH (10:00)
[2016-06-09] MEDS ORDERED: LEVOFLOXACIN 750 MG TABLET PO SCH (11:00)
--- NOTE | 2016-06-09 11:05 | PDOC PROGRESS REPORT ---
Subjective Progress Note for:: 06/09/16 Subjective:: Continues to feel better. Off the BiPAP. Denies chills or fever. No nausea or vomiting. Tolerating oral intake well. Denies having any diarrhea. No chest pain, paroxysmal nocturnal dyspnea, orthopnea. Physical Exam Vital Signs: Temp Pulse Resp BP Pulse Ox 98.0 F 106 H 14 128/77 H 95 06/09/16 07:17 06/09/16 08:46 06/09/16 08:46 06/09/16 07:17 06/09/16 08:46 Pulse Oximeter Continuous Start: 06/07/16 17: 09 Freq: RTQ4 Status: Active Document 06/09/16 08:46 [facility] [place] (Rec: 06/09/16 09:02 [facility] [place] [email or web address]) Pulse Oximetry Assessment Oxygen Saturation (92-100) 95 Oxygen Flow Rate (L/min) 4 Oxygen Delivery Method Nasal Cannula Fraction of Inspired Oxygen (FIO2) 36 Equipment Usage Equipment Standby Continuous SpO2 Machine # na Intake & Output 06/08/16 06/09/16 06/10/16 06:59 06:59 06:59 Intake Total 1140 200 Output Total 2350 300 Balance -1210 -100 Weight 118 kg 118 kg General appearance: PRESENT: no acute distress, morbidly obese, other - Nasal cannula oxygen Head exam: PRESENT: normocephalic Eye exam: PRESENT: EOMI Ear exam: ABSENT: drainage Mouth exam: PRESENT: moist, neck supple Neck exam: ABSENT: JVD Respiratory exam: PRESENT: clear to auscultation jayj ay - Anteriorly bilateral. ABSENT: rhonchi, wheezes Cardiovascular exam: PRESENT: RRR. ABSENT: gallop GI/Abdominal exam: PRESENT: hypoactive bowel sounds, soft. ABSENT: tenderness Extremities exam: PRESENT: +1 edema Neurological exam: PRESENT: alert, awake, oriented to situation Skin exam: PRESENT: dry, warm. ABSENT: cyanosis Results Laboratory Results: 06/09/16 05:15 06/09/16 05:15 06/08/16 06/08/16 06/09/16 09:04 21:15 05:15 WBC 14.9 H 15.4 H RBC 3.23 L 3.09 L Hgb 9.1 L 8.8 L Hct 28.0 L 26.7 L MCV 87 87 MCH 28.1 28.7 MCHC 32.4 33.1 RDW 19.1 H 19.1 H Plt Count 202 193 Seg Neutrophils % Not Reportable Lymphocytes % Not Reportable Monocytes % Not Reportable Eosinophils % Not Reportable Basophils % Not Reportable Absolute Neutrophils Not Reportable Absolute Lymphocytes Not Reportable Absolute Monocytes Not Reportable Absolute Eosinophils Not Reportable Absolute Basophils Not Reportable Sodium Potassium Chloride Carbon Dioxide Anion Gap BUN Creatinine Est GFR ( Amer) Est GFR (Non-Af Amer) Glucose Calcium Blood Type O POSITIVE Antibody Screen NEGATIVE 06/09/16 05:15 WBC RBC Hgb Hct MCV MCH MCHC RDW Plt Count Seg Neutrophils % Lymphocytes % Monocytes % Eosinophils % Basophils % Absolute Neutrophils Absolute Lymphocytes Absolute Monocytes Absolute Eosinophils Absolute Basophils Sodium 146.0 H Potassium 3.3 L Chloride 105 Carbon Dioxide 29 Anion Gap 12 BUN 42 H Creatinine 1.58 H Est GFR ( Amer) 39 L Est GFR (Non-Af Amer) 33 L Glucose 149 H Calcium 8.3 L Blood Type Antibody Screen Impressions: Chest CT 06/07/16 00:00 IMPRESSION: Post therapeutic changes in the left hemithorax. New area of consolidation in the right lower lobe worrisome for focal pneumonia. This should be followed to radiographic clearing Hip X-Ray 06/07/16 00:00 IMPRESSION: No acute fracture. Chest X-Ray 06/07/16 12:12 IMPRESSION: CARDIAC ENLARGEMENT. VASCULAR CONGESTION. ASYMMETRIC HAZY DENSITY IN THE LEFT HEMITHORAX PROBABLY DUE TO MILD ASYMMETRIC PULMONARY EDEMA AND/OR PLEURAL EFFUSION. Renal Ultrasound 06/08/16 00:00 IMPRESSION: No acute findings; limited. Assessment & Plan - Diagnosis (1) Acute on chronic respiratory failure with hypoxemia Is this a current diagnosis for this admission?: Yes (2) Pneumonia Qualifiers: Pneumonia type: due to unspecified organism Laterality: unspecified laterality Lung location: unspecified part of lung Qualified Code(s) : J18.9 - Pneumonia, unspecified organism Is this a current diagnosis for this admission?: Yes (3) Sepsis Qualifiers: Sepsis type: sepsis due to unspecified organism Qualified Code(s): A41.9 - Sepsis, unspecified organism Is this a current diagnosis for this admission?: Yes (4) Hypotension Qualifiers: Hypotension type: unspecified hypotension type Qualified Code(s): I95.9 - Hypotension, unspecified Is this a current diagnosis for this admission?: Yes (5) TIMO (acute kidney injury) Is this a current diagnosis for this admission?: Yes (6) Anemia Qualifiers: Anemia type: unspecified type Qualified Code(s): D64.9 - Anemia, unspecified Is this a current diagnosis for this admission?: Yes (7) COPD (chronic obstructive pulmonary disease) Qualifiers: COPD type: emphysema Emphysema type: unspecified Qualified Code( s): J43.9 - Emphysema, unspecified Is this a current diagnosis for this admission?: Yes (8) Hip pain Qualifiers: Laterality: left Qualified Code(s): M25.552 - Pain in left hip Is this a current diagnosis for this admission?: Yes (9) Hypertension Qualifiers: Hypertension type: essential hypertension Qualified Code(s): I10 - Essential (primary) hypertension Is this a current diagnosis for this admission?: Yes (10) Morbid obesity with BMI of 45.0-49.9, adult Is this a current diagnosis for this admission?: Yes (11) Diabetes mellitus Qualifiers: Diabetes mellitus type: type 2 Diabetes mellitus complication status: with unspecified complications Diabetes mellitus intermediate designer insulin use: with fci use Qualified Code(s): E11.8 - Type 2 diabetes mellitus with unspecified complications; 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 Is this a current diagnosis for this admission?: Yes (12) GERD (gastroesophageal reflux disease) Qualifiers: Esophagitis presence: without esophagitis Qualified Code(s): K21.9 - Gastro-esophageal reflux disease without esophagitis Is this a current diagnosis for this admission?: Yes (13) Chronic CHF Qualifiers: Congestive heart failure type: diastolic Qualified Code(s): I50.32 - Chronic diastolic (congestive) heart failure Is this a current diagnosis for this admission?: Yes (14) Hyperlipidemia Qualifiers: Hyperlipidemia type: unspecified Qualified Code(s): E78.5 - Hyperlipidemia, unspecified Is this a current diagnosis for this admission?: Yes (15) Obstructive sleep apnea Is this a current diagnosis for this admission?: Yes (16) Lung cancer Qualifiers: Laterality: unspecified laterality Lung location: unspecified part of lung Qualified Code(s): C34.90 - Malignant neoplasm of unspecified part of unspecified bronchus or lung Is this a current diagnosis for this admission?: Yes - Time Time Spent with patient: 25-34 minutes - Plan Summary Plan Summary: Continue vancomycin for now. As per microbiology, organisms likely Staphylococcus aureus or MRSA. We will arrange for home IV antibiotics. Discontinue cefepime as switched to oral Levaquin.
[2016-06-10] MEDS: HYDROCODONE/ACETAMINOPHEN 5-325 MG TABLET PO PRN ×5 (00:25→21:10)
[2016-06-10] MEDS: IPRATROPIUM/ALBUTEROL 0.5-2.5 MG/3 ML AMPUL NEB SCH ×4 (02:17→20:38)
[2016-06-10] MEDS: LANSOPRAZOLE 30 MG TAB.RAP.DR PO SCH ×2 (05:24→17:00)
[2016-06-10] MEDS: HEPARIN SOD (PORCINE) 5,000 UNIT/ML 1 ML SYRINGE SUBCUT SCH ×3 (05:24→21:44)
[2016-06-10 06:11] LABS: HEMOGLOBIN 9.1 g/dL (12.0-15.5); HGB HCT DIFFERENCE -0.7; MEAN CORPUSCULAR HEMOGLOBIN 28.2 pg (27.0-33.4); MEAN CORPUSCULAR HGB CONC 32.5 g/dL (32.0-36.0); MEAN CORPUSCULAR VOLUME 87 fl (80-97); RED BLOOD COUNT 3.23 10^6/uL (3.72-5.28); WHITE BLOOD COUNT 18.4 10^3/uL (4.0-10.5)
[2016-06-10 06:34] LABS: ANION GAP 10 (5-19); BLOOD UREA NITROGEN 36 mg/dL (7-20); CALCIUM 8.8 mg/dL (8.4-10.2); CARBON DIOXIDE 30 mmol/L (22-30); CHLORIDE 105 mmol/L (98-107); CREATININE RESULT 1.09 mg/dL (0.52-1.25); GLUCOSE 150 mg/dL (75-110); POTASSIUM 3.6 mmol/L (3.6-5.0); SODIUM 144.6 mmol/L (137-145)
[2016-06-10] MEDS: INSULIN DETEMIR 100 UNIT/ML 3 ML PEN SUBCUT SCH (09:09)
[2016-06-10] MEDS: ASPIRIN 81 MG TABLET, ENT COATED PO SCH (09:11)
[2016-06-10] MEDS: GABAPENTIN 300 MG CAPSULE PO SCH ×2 (09:11→21:11)
[2016-06-10] MEDS: GUAIFENESIN 600 MG TABLET.SA PO SCH ×2 (09:11→21:11)
[2016-06-10] MEDS: NORMAL SALINE 1000 ML 1,000 ML IV PRN (09:19)
--- NOTE | 2016-06-10 09:20 | PDOC PROGRESS REPORT ---
Subjective Progress Note for:: 06/10/16 Subjective:: Continues to feel better. Off the BiPAP. Denies chills or fever. No nausea or vomiting. Tolerating oral intake well. Denies having any diarrhea. No chest pain, paroxysmal nocturnal dyspnea, orthopnea. Patient however continues to have some hip discomfort and spasms at times. There is really when trying to get up from bed to chair or transferring. Blood cultures growing MRSA. Creatinine continues to improve. Physical Exam Vital Signs: Temp Pulse Resp BP Pulse Ox 97.4 F 112 H 20 140/76 H 98 06/10/16 07:37 06/10/16 08:21 06/10/16 08:21 06/10/16 07:37 06/10/16 08:21 Pulse Oximeter Continuous Start: 06/07/16 17: 09 Freq: RTQ4 Status: Active Document 06/10/16 08:21 [facility] (Rec: 06/10/16 09:16 [facility] [email or web address]) Pulse Oximetry Assessment Equipment Usage Equipment Standby Continuous SpO2 Machine # 7 Intake & Output 06/09/16 06/10/16 06/11/16 06:59 06:59 06:59 Intake Total 1140 3256 Output Total 2350 1600 Balance -1210 1656 Weight 118 kg 119 kg General appearance: PRESENT: no acute distress, morbidly obese Head exam: PRESENT: normocephalic Eye exam: PRESENT: EOMI Mouth exam: PRESENT: moist, neck supple Neck exam: ABSENT: JVD Respiratory exam: PRESENT: clear to auscultation jay jay - Anteriorly, rhonchi - Occasional posterior Cardiovascular exam: PRESENT: RRR. ABSENT: gallop GI/Abdominal exam: PRESENT: hypoactive bowel sounds, soft, other - Obese. ABSENT: tenderness Extremities exam: PRESENT: pedal edema - Trace Neurological exam: PRESENT: alert, awake, oriented to situation Skin exam: PRESENT: dry, warm. ABSENT: cyanosis Results Laboratory Results: 06/10/16 05:43 06/10/16 05:43 06/10/16 06/10/16 05:43 05:43 WBC 18.4 H RBC 3.23 L Hgb 9.1 L Hct 28.0 L MCV 87 MCH 28.2 MCHC 32.5 RDW 20.0 H Plt Count 199 Sodium 144.6 Potassium 3.6 Chloride 105 Carbon Dioxide 30 Anion Gap 10 BUN 36 H Creatinine 1.09 Est GFR ( Amer) > 60 Est GFR (Non-Af Amer) 50 L Glucose 150 H Calcium 8.8 Impressions: Chest CT 06/07/16 00:00 IMPRESSION: Post therapeutic changes in the left hemithorax. New area of consolidation in the right lower lobe worrisome for focal pneumonia. This should be followed to radiographic clearing Hip X-Ray 06/07/16 00:00 IMPRESSION: No acute fracture. Chest X-Ray 06/07/16 12:12 IMPRESSION: CARDIAC ENLARGEMENT. VASCULAR CONGESTION. ASYMMETRIC HAZY DENSITY IN THE LEFT HEMITHORAX PROBABLY DUE TO MILD ASYMMETRIC PULMONARY EDEMA AND/OR PLEURAL EFFUSION. Renal Ultrasound 06/08/16 00:00 IMPRESSION: No acute findings; limited. Assessment & Plan - Diagnosis (1) Acute on chronic respiratory failure with hypoxemia Is this a current diagnosis for this admission?: Yes (2) Pneumonia Qualifiers: Pneumonia type: due to unspecified organism Laterality: unspecified laterality Lung location: unspecified part of lung Qualified Code(s) : J18.9 - Pneumonia, unspecified organism Is this a current diagnosis for this admission?: Yes (3) Sepsis Qualifiers: Sepsis type: sepsis due to unspecified organism Qualified Code(s): A41.9 - Sepsis, unspecified organism Is this a current diagnosis for this admission?: Yes (4) Hypotension Qualifiers: Hypotension type: unspecified hypotension type Qualified Code(s): I95.9 - Hypotension, unspecified Is this a current diagnosis for this admission?: Yes (5) TIMO (acute kidney injury) Is this a current diagnosis for this admission?: Yes (6) Anemia Qualifiers: Anemia type: unspecified type Qualified Code(s): D64.9 - Anemia, unspecified Is this a current diagnosis for this admission?: Yes (7) COPD (chronic obstructive pulmonary disease) Qualifiers: COPD type: emphysema Emphysema type: unspecified Qualified Code( s): J43.9 - Emphysema, unspecified Is this a current diagnosis for this admission?: Yes (8) Hip pain Qualifiers: Laterality: left Qualified Code(s): M25.552 - Pain in left hip Is this a current diagnosis for this admission?: Yes (9) Hypertension Qualifiers: Hypertension type: essential hypertension Qualified Code(s): I10 - Essential (primary) hypertension Is this a current diagnosis for this admission?: Yes (10) Morbid obesity with BMI of 45.0-49.9, adult Is this a current diagnosis for this admission?: Yes (11) Diabetes mellitus Qualifiers: Diabetes mellitus type: type 2 Diabetes mellitus complication status: with unspecified complications Diabetes mellitus mcc insulin use: with emt intermediate use Qualified Code(s): E11.8 - Type 2 diabetes mellitus with unspecified complications; Z79.4 - correction (current) use of insulin Is this a current diagnosis for this admission?: Yes (12) GERD (gastroesophageal reflux disease) Qualifiers: Esophagitis presence: without esophagitis Qualified Code(s): K21.9 - Gastro-esophageal reflux disease without esophagitis Is this a current diagnosis for this admission?: Yes (13) Chronic CHF Qualifiers: Congestive heart failure type: diastolic Qualified Code(s): I50.32 - Chronic diastolic (congestive) heart failure Is this a current diagnosis for this admission?: Yes (14) Hyperlipidemia Qualifiers: Hyperlipidemia type: unspecified Qualified Code(s): E78.5 - Hyperlipidemia, unspecified Is this a current diagnosis for this admission?: Yes (15) Obstructive sleep apnea Is this a current diagnosis for this admission?: Yes (16) Lung cancer Qualifiers: Laterality: unspecified laterality Lung location: unspecified part of lung Qualified Code(s): C34.90 - Malignant neoplasm of unspecified part of unspecified bronchus or lung Is this a current diagnosis for this admission?: Yes - Time Time Spent with patient: 25-34 minutes - Plan Summary Plan Summary: We will continue vancomycin. Continue gentle IV hydration. We will consult infectious disease at [facility]. In the meantime we will obtain specimens for culture from the Port-A-Cath site. We will try cathflo for the Port-A-Cath.
[2016-06-10] MEDS ORDERED: ALTEPLASE INJ 2 MG VIAL (CATH CLEARANCE) IV ONE ×2 (09:45→12:30)
[2016-06-10 10:25] LABS: CREATININE RESULT 0.99 mg/dL (0.52-1.25)
[2016-06-10] MEDS: LEVOFLOXACIN 750 MG TABLET PO SCH (11:51)
[2016-06-10] MEDS: PREDNISONE 20 MG TABLET PO SCH (11:52)
[2016-06-10] MEDS ORDERED: VANCOMYCIN HCL 1,500 MG in DEXTROSE 5%-WATER 250 ML IV ONE (12:00)
[2016-06-10] MEDS: INSULIN REG, HUMAN 100 UNIT/ML 3 ML VIAL (PYX) SUBCUT PRN ×2 (17:00→21:45)
[2016-06-10] MEDS: METOPROLOL TARTRATE 25 MG TABLET PO SCH (23:22)
[2016-06-11] MEDS: HYDROCODONE/ACETAMINOPHEN 5-325 MG TABLET PO PRN ×5 (01:15→19:55)
[2016-06-11] MEDS: IPRATROPIUM/ALBUTEROL 0.5-2.5 MG/3 ML AMPUL NEB SCH ×4 (02:21→22:02)
[2016-06-11] MEDS: METOPROLOL TARTRATE 25 MG TABLET PO SCH ×3 (05:24→17:02)
[2016-06-11] MEDS: LANSOPRAZOLE 30 MG TAB.RAP.DR PO SCH ×2 (05:25→17:02)
[2016-06-11] MEDS: HEPARIN SOD (PORCINE) 5,000 UNIT/ML 1 ML SYRINGE SUBCUT SCH ×3 (05:26→22:34)
[2016-06-11] MEDS: ASPIRIN 81 MG TABLET, ENT COATED PO SCH (09:30)
[2016-06-11] MEDS: PREDNISONE 20 MG TABLET PO SCH (09:30)
[2016-06-11] MEDS: GUAIFENESIN 600 MG TABLET.SA PO SCH ×2 (09:30→22:22)
[2016-06-11] MEDS: GABAPENTIN 300 MG CAPSULE PO SCH ×2 (09:30→22:22)
[2016-06-11] MEDS: INSULIN DETEMIR 100 UNIT/ML 3 ML PEN SUBCUT SCH (09:31)
[2016-06-11] MEDS: VANCOMYCIN HCL 1,500 MG in DEXTROSE 5%-WATER 250 ML IV SCH (09:35)
[2016-06-11] MEDS: NORMAL SALINE 1000 ML 1,000 ML IV PRN (13:14)
[2016-06-11] MEDS: LEVOFLOXACIN 750 MG TABLET PO SCH (13:15)
--- NOTE | 2016-06-11 14:11 | PDOC PROGRESS REPORT ---
Subjective Progress Note for:: 06/11/16 Subjective:: Continues to feel better. Has been off the BiPAP. Denies chills or fever. No nausea or vomiting. Tolerating oral intake well. Denies having any diarrhea. No chest pain, paroxysmal nocturnal dyspnea, orthopnea. Patient however continues to have some hip discomfort and spasms at times. Blood cultures growing MRSA. Alessandro-Cath site culture G+ cocci. Creatinine continues to improve. Physical Exam Vital Signs: Temp Pulse Resp BP Pulse Ox 98.3 F 97 19 142/79 H 100 06/11/16 11:22 06/11/16 11:22 06/11/16 11:22 06/11/16 11:22 06/11/16 11:22 Pulse Oximeter Continuous Start: 06/07/16 17: 09 Freq: RTQ4 Status: Active Document 06/11/16 08:07 LDA (Rec: 06/11/16 10:05 LDA [email or web address]) Pulse Oximetry Assessment Oxygen Saturation (92-100) 96 Oxygen Flow Rate (L/min) 2 Oxygen Delivery Method Nasal Cannula Equipment Usage Equipment in Use Continuous SpO2 Machine # [id number] Intake & Output 06/10/16 06/11/16 06/12/16 06:59 06:59 06:59 Intake Total 3256 2976 220 Output Total 1600 1700 300 Balance 1656 1276 -80 Weight 119 kg 120 kg General appearance: PRESENT: no acute distress, cooperative, morbidly obese Head exam: PRESENT: normocephalic Eye exam: PRESENT: EOMI Mouth exam: PRESENT: moist, neck supple Neck exam: ABSENT: JVD Respiratory exam: PRESENT: clear to auscultation jay jay - anteriorly. ABSENT: rhonchi, wheezes Cardiovascular exam: PRESENT: RRR. ABSENT: gallop GI/Abdominal exam: PRESENT: hypoactive bowel sounds, soft. ABSENT: distended, tenderness Extremities exam: ABSENT: pedal edema Neurological exam: PRESENT: alert, awake Skin exam: PRESENT: dry, warm. ABSENT: cyanosis Results Laboratory Results: 06/10/16 05:43 06/10/16 09:54 06/09/16 10:05 Nasophary ([facility] Only) MRSA Surveillance Culture - Final MRSA RECOVERED Impressions: Chest CT 06/07/16 00:00 IMPRESSION: Post therapeutic changes in the left hemithorax. New area of consolidation in the right lower lobe worrisome for focal pneumonia. This should be followed to radiographic clearing Hip X-Ray 06/07/16 00:00 IMPRESSION: No acute fracture. Chest X-Ray 06/07/16 12:12 IMPRESSION: CARDIAC ENLARGEMENT. VASCULAR CONGESTION. ASYMMETRIC HAZY DENSITY IN THE LEFT HEMITHORAX PROBABLY DUE TO MILD ASYMMETRIC PULMONARY EDEMA AND/OR PLEURAL EFFUSION. Renal Ultrasound 06/08/16 00:00 IMPRESSION: No acute findings; limited. Assessment & Plan - Diagnosis (1) Acute on chronic respiratory failure with hypoxemia Is this a current diagnosis for this admission?: Yes (2) Pneumonia Qualifiers: Pneumonia type: due to unspecified organism Laterality: unspecified laterality Lung location: unspecified part of lung Qualified Code(s) : J18.9 - Pneumonia, unspecified organism Is this a current diagnosis for this admission?: Yes (3) Sepsis Qualifiers: Sepsis type: sepsis due to unspecified organism Qualified Code(s): A41.9 - Sepsis, unspecified organism Is this a current diagnosis for this admission?: Yes (4) Hypotension Qualifiers: Hypotension type: unspecified hypotension type Qualified Code(s): I95.9 - Hypotension, unspecified Is this a current diagnosis for this admission?: Yes (5) TIMO (acute kidney injury) Is this a current diagnosis for this admission?: Yes (6) Anemia Qualifiers: Anemia type: unspecified type Qualified Code(s): D64.9 - Anemia, unspecified Is this a current diagnosis for this admission?: Yes (7) COPD (chronic obstructive pulmonary disease) Qualifiers: COPD type: emphysema Emphysema type: unspecified Qualified Code( s): J43.9 - Emphysema, unspecified Is this a current diagnosis for this admission?: Yes (8) Hip pain Qualifiers: Laterality: left Qualified Code(s): M25.552 - Pain in left hip Is this a current diagnosis for this admission?: Yes (9) Hypertension Qualifiers: Hypertension type: essential hypertension Qualified Code(s): I10 - Essential (primary) hypertension Is this a current diagnosis for this admission?: Yes (10) Morbid obesity with BMI of 45.0-49.9, adult Is this a current diagnosis for this admission?: Yes (11) Diabetes mellitus Qualifiers: Diabetes mellitus type: type 2 Diabetes mellitus complication status: with unspecified complications Diabetes mellitus rn long term care insulin use: with correction use Qualified Code(s): E11.8 - Type 2 diabetes mellitus with unspecified complications; Z79.4 - intermediate card tender (current) use of insulin Is this a current diagnosis for this admission?: Yes (12) GERD (gastroesophageal reflux disease) Qualifiers: Esophagitis presence: without esophagitis Qualified Code(s): K21.9 - Gastro-esophageal reflux disease without esophagitis Is this a current diagnosis for this admission?: Yes (13) Chronic CHF Qualifiers: Congestive heart failure type: diastolic Qualified Code(s): I50.32 - Chronic diastolic (congestive) heart failure Is this a current diagnosis for this admission?: Yes (14) Hyperlipidemia Qualifiers: Hyperlipidemia type: unspecified Qualified Code(s): E78.5 - Hyperlipidemia, unspecified Is this a current diagnosis for this admission?: Yes (15) Obstructive sleep apnea Is this a current diagnosis for this admission?: Yes (16) Lung cancer Qualifiers: Laterality: unspecified laterality Lung location: unspecified part of lung Qualified Code(s): C34.90 - Malignant neoplasm of unspecified part of unspecified bronchus or lung Is this a current diagnosis for this admission?: Yes - Time Time Spent with patient: 25-34 minutes - Plan Summary Plan Summary: We will put a PICC line in a.m. Discontinue Port-A-Cath tomorrow. Repeat blood cultures after Port-A-Cath is off. Obtain a 2-D echocardiogram transthoracic and is a good study without vegetation and blood culture repeat without the catheter is negative continue total of 4 weeks of vancomycin IV. However there are vegetations noted or suggested, 6 weeks of IV antibiotics is recommended. Discussed with infectious disease service in [employer] [facility].
[2016-06-11] MEDS: INSULIN REG, HUMAN 100 UNIT/ML 3 ML VIAL (PYX) SUBCUT PRN (22:22)
[2016-06-12] MEDS: METOPROLOL TARTRATE 25 MG TABLET PO SCH ×4 (00:15→17:24)
[2016-06-12] MEDS: IPRATROPIUM/ALBUTEROL 0.5-2.5 MG/3 ML AMPUL NEB SCH ×4 (02:24→19:45)
[2016-06-12] MEDS: HYDROCODONE/ACETAMINOPHEN 5-325 MG TABLET PO PRN ×3 (04:20→18:17)
[2016-06-12] MEDS: HEPARIN SOD (PORCINE) 5,000 UNIT/ML 1 ML SYRINGE SUBCUT SCH ×3 (05:02→23:09)
[2016-06-12] MEDS: LANSOPRAZOLE 30 MG TAB.RAP.DR PO SCH ×2 (05:02→17:24)
[2016-06-12 06:00] LABS: HEMATOCRIT 27.9 % (36.0-47.0); HEMOGLOBIN 9.1 g/dL (12.0-15.5); HGB HCT DIFFERENCE -0.6; MEAN CORPUSCULAR HEMOGLOBIN 28.8 pg (27.0-33.4); MEAN CORPUSCULAR HGB CONC 32.5 g/dL (32.0-36.0); MEAN CORPUSCULAR VOLUME 89 fl (80-97); RED BLOOD COUNT 3.15 10^6/uL (3.72-5.28); RED CELL DISTRIBUTION WIDTH 19.8 % (11.5-14.0); WHITE BLOOD COUNT 17.3 10^3/uL (4.0-10.5)
[2016-06-12 06:17] LABS: ANION GAP 10 (5-19); BLOOD UREA NITROGEN 22 mg/dL (7-20); CALCIUM 8.7 mg/dL (8.4-10.2); CARBON DIOXIDE 31 mmol/L (22-30); CHLORIDE 104 mmol/L (98-107); CREATININE RESULT 0.81 mg/dL (0.52-1.25); GLUCOSE 83 mg/dL (75-110); POTASSIUM 3.6 mmol/L (3.6-5.0); SODIUM 144.9 mmol/L (137-145)
[2016-06-12] MEDS: ASPIRIN 81 MG TABLET, ENT COATED PO SCH (09:30)
[2016-06-12] MEDS: GUAIFENESIN 600 MG TABLET.SA PO SCH ×2 (09:30→23:09)
[2016-06-12] MEDS: PREDNISONE 20 MG TABLET PO SCH (09:30)
[2016-06-12] MEDS: GABAPENTIN 300 MG CAPSULE PO SCH ×2 (09:30→23:08)
[2016-06-12] MEDS: VANCOMYCIN HCL 1,500 MG in DEXTROSE 5%-WATER 250 ML IV SCH (09:30)
[2016-06-12] MEDS: NORMAL SALINE 1000 ML 1,000 ML IV PRN (09:31)
[2016-06-12] MEDS: INSULIN DETEMIR 100 UNIT/ML 3 ML PEN SUBCUT SCH (09:42)
--- NOTE | 2016-06-12 09:49 | PDOC PROGRESS REPORT ---
Subjective Progress Note for:: 06/12/16 Subjective:: There is no new complaint. There is no diarrhea. Denies any worsening shortness of breath. No chills or fever. Occasional cough. Unable to put the PICC line today due to the holiday. Denies any chest pain, abdominal pain, nausea or vomiting. Physical Exam Vital Signs: Temp Pulse Resp BP Pulse Ox 98.2 F 88 16 110/74 100 06/12/16 07:34 06/12/16 08:54 06/12/16 08:54 06/12/16 07:34 06/12/16 08:54 Pulse Oximeter Continuous Start: 06/07/16 17: 09 Freq: RTQ4 Status: Active Document 06/12/16 08:54 LDA (Rec: 06/12/16 09:17 LDA [email or web address]) Pulse Oximetry Assessment Oxygen Saturation (92-100) 100 Oxygen Flow Rate (L/min) 2 Oxygen Delivery Method Nasal Cannula Equipment Usage Equipment in Use Continuous SpO2 Machine # n-[id number] Intake & Output 06/11/16 06/12/16 06/13/16 06:59 06:59 06:59 Intake Total 2976 1562 Output Total 1700 1700 Balance 1276 -138 Weight 120 kg 120 kg General appearance: PRESENT: no acute distress, morbidly obese Head exam: PRESENT: normocephalic Eye exam: PRESENT: conjunctiva pale Mouth exam: PRESENT: moist, neck supple Neck exam: ABSENT: JVD Respiratory exam: PRESENT: rhonchi - few, unlabored. ABSENT: wheezes Cardiovascular exam: PRESENT: RRR. ABSENT: gallop GI/Abdominal exam: PRESENT: hypoactive bowel sounds, soft, other - Obese. ABSENT: tenderness Extremities exam: PRESENT: other - Trace lower extremity edema Neurological exam: PRESENT: alert, awake, oriented to situation Skin exam: PRESENT: dry, warm. ABSENT: cyanosis Results Laboratory Results: 06/12/16 05:10 06/12/16 05:10 06/12/16 06/12/16 05:10 05:10 WBC 17.3 H RBC 3.15 L Hgb 9.1 L Hct 27.9 L MCV 89 MCH 28.8 MCHC 32.5 RDW 19.8 H Plt Count 190 Sodium 144.9 Potassium 3.6 Chloride 104 Carbon Dioxide 31 H Anion Gap 10 BUN 22 H Creatinine 0.81 Est GFR ( Amer) > 60 Est GFR (Non-Af Amer) > 60 Glucose 83 Calcium 8.7 Impressions: Chest CT 06/07/16 00:00 IMPRESSION: Post therapeutic changes in the left hemithorax. New area of consolidation in the right lower lobe worrisome for focal pneumonia. This should be followed to radiographic clearing Hip X-Ray 06/07/16 00:00 IMPRESSION: No acute fracture. Chest X-Ray 06/07/16 12:12 IMPRESSION: CARDIAC ENLARGEMENT. VASCULAR CONGESTION. ASYMMETRIC HAZY DENSITY IN THE LEFT HEMITHORAX PROBABLY DUE TO MILD ASYMMETRIC PULMONARY EDEMA AND/OR PLEURAL EFFUSION. Renal Ultrasound 06/08/16 00:00 IMPRESSION: No acute findings; limited. Assessment & Plan - Diagnosis (1) Acute on chronic respiratory failure with hypoxemia Is this a current diagnosis for this admission?: Yes (2) Pneumonia Qualifiers: Pneumonia type: due to unspecified organism Laterality: unspecified laterality Lung location: unspecified part of lung Qualified Code(s) : J18.9 - Pneumonia, unspecified organism Is this a current diagnosis for this admission?: Yes (3) Sepsis Qualifiers: Sepsis type: sepsis due to unspecified organism Qualified Code(s): A41.9 - Sepsis, unspecified organism Is this a current diagnosis for this admission?: Yes (4) Hypotension Qualifiers: Hypotension type: unspecified hypotension type Qualified Code(s): I95.9 - Hypotension, unspecified Is this a current diagnosis for this admission?: Yes (5) TIMO (acute kidney injury) Is this a current diagnosis for this admission?: Yes (6) Anemia Qualifiers: Anemia type: unspecified type Qualified Code(s): D64.9 - Anemia, unspecified Is this a current diagnosis for this admission?: Yes (7) COPD (chronic obstructive pulmonary disease) Qualifiers: COPD type: emphysema Emphysema type: unspecified Qualified Code( s): J43.9 - Emphysema, unspecified Is this a current diagnosis for this admission?: Yes (8) Hip pain Qualifiers: Laterality: left Qualified Code(s): M25.552 - Pain in left hip Is this a current diagnosis for this admission?: Yes (9) Hypertension Qualifiers: Hypertension type: essential hypertension Qualified Code(s): I10 - Essential (primary) hypertension Is this a current diagnosis for this admission?: Yes (10) Morbid obesity with BMI of 45.0-49.9, adult Is this a current diagnosis for this admission?: Yes (11) Diabetes mellitus Qualifiers: Diabetes mellitus type: type 2 Diabetes mellitus complication status: with unspecified complications Diabetes mellitus jail insulin use: with bead supervisor use Qualified Code(s): E11.8 - Type 2 diabetes mellitus with unspecified complications; Z79.4 - capacitor tester (current) use of insulin Is this a current diagnosis for this admission?: Yes (12) GERD (gastroesophageal reflux disease) Qualifiers: Esophagitis presence: without esophagitis Qualified Code(s): K21.9 - Gastro-esophageal reflux disease without esophagitis Is this a current diagnosis for this admission?: Yes (13) Chronic CHF Qualifiers: Congestive heart failure type: diastolic Qualified Code(s): I50.32 - Chronic diastolic (congestive) heart failure Is this a current diagnosis for this admission?: Yes (14) Hyperlipidemia Qualifiers: Hyperlipidemia type: unspecified Qualified Code(s): E78.5 - Hyperlipidemia, unspecified Is this a current diagnosis for this admission?: Yes (15) Obstructive sleep apnea Is this a current diagnosis for this admission?: Yes (16) Lung cancer Qualifiers: Laterality: unspecified laterality Lung location: unspecified part of lung Qualified Code(s): C34.90 - Malignant neoplasm of unspecified part of unspecified bronchus or lung Is this a current diagnosis for this admission?: Yes - Time Time Spent with patient: 25-34 minutes - Plan Summary Plan Summary: PICC line placement in the morning. Continue intravenous antibiotic. Obtain echocardiogram. Discontinue Port-A-Cath when PICC line is in place. Subsequently repeated blood cultures after PICC line discontinued. Patient will need 4 weeks of IV antibiotics after the last negative blood culture if echocardiogram is negative for vegetation, otherwise will need 6 weeks if vegetation is present or suspicious. Discussed with infectious disease service in [facility] in [facility].
[2016-06-12] MEDS: LEVOFLOXACIN 750 MG TABLET PO SCH (12:37)
[2016-06-13] MEDS: METOPROLOL TARTRATE 25 MG TABLET PO SCH ×4 (00:24→18:12)
[2016-06-13] MEDS: HYDROCODONE/ACETAMINOPHEN 5-325 MG TABLET PO PRN ×4 (00:29→21:40)
[2016-06-13] MEDS: IPRATROPIUM/ALBUTEROL 0.5-2.5 MG/3 ML AMPUL NEB SCH ×4 (01:18→21:01)
[2016-06-13] MEDS: LANSOPRAZOLE 30 MG TAB.RAP.DR PO SCH ×2 (05:04→18:12)
[2016-06-13] MEDS: HEPARIN SOD (PORCINE) 5,000 UNIT/ML 1 ML SYRINGE SUBCUT SCH ×3 (05:04→22:01)
[2016-06-13] MEDS: PREDNISONE 20 MG TABLET PO SCH (10:35)
[2016-06-13] MEDS: LEVOFLOXACIN 750 MG TABLET PO SCH (10:35)
[2016-06-13] MEDS: GUAIFENESIN 600 MG TABLET.SA PO SCH ×2 (10:36→21:41)
[2016-06-13] MEDS: GABAPENTIN 300 MG CAPSULE PO SCH ×2 (10:36→21:41)
[2016-06-13] MEDS: VANCOMYCIN HCL 1,500 MG in DEXTROSE 5%-WATER 250 ML IV SCH (10:39)
[2016-06-13 10:42] LABS: CREATININE RESULT 0.62 mg/dL (0.52-1.25)
[2016-06-13] MEDS: INSULIN DETEMIR 100 UNIT/ML 3 ML PEN SUBCUT SCH (10:56)
[2016-06-13] MEDS: ASPIRIN 81 MG TABLET, ENT COATED PO SCH (10:56)
[2016-06-13 11:20] LABS: TROUGH DRAW TIME 1008
--- NOTE | 2016-06-13 12:35 | PDOC PROGRESS REPORT ---
Subjective Progress Note for:: 06/13/16 Subjective:: Complains of low back pain Physical Exam Vital Signs: Temp Pulse Resp BP Pulse Ox 98.0 F 87 18 118/64 99 06/13/16 07:50 06/13/16 08:35 06/13/16 08:35 06/13/16 07:50 06/13/16 08:35 Pulse Oximeter Continuous Start: 06/07/16 17: 09 Freq: RTQ4 Status: Active Document 06/13/16 11:46 [facility] (Rec: 06/13/16 11:47 [facility] [email or web address]) Pulse Oximetry Assessment Equipment Usage Equipment Standby Continuous SpO2 Machine # N 7 Additional RT Notes Other pt not in room Intake & Output 06/12/16 06/13/16 06/14/16 06:59 06:59 06:59 Intake Total 1562 2298 Output Total 1700 925 Balance -138 1373 Weight 120 kg 122 kg General appearance: PRESENT: no acute distress Eye exam: PRESENT: conjunctiva pink Mouth exam: PRESENT: moist, tongue midline Neck exam: ABSENT: JVD Respiratory exam: PRESENT: clear to auscultation jay jay. ABSENT: rales, rhonchi, wheezes Cardiovascular exam: PRESENT: RRR. ABSENT: diastolic murmur, rubs, systolic murmur GI/Abdominal exam: PRESENT: normal bowel sounds, soft. ABSENT: distended, guarding, mass, organolmegaly, rebound, tenderness Extremities exam: ABSENT: calf tenderness, clubbing, pedal edema Neurological exam: PRESENT: alert, awake, oriented to person, oriented to place , oriented to time, oriented to situation Psychiatric exam: PRESENT: appropriate affect Skin exam: PRESENT: dry, intact, warm. ABSENT: cyanosis, rash Results Laboratory Results: 06/12/16 05:10 06/13/16 10:08 06/13/16 10:08 Creatinine 0.62 Est GFR ( Amer) > 60 Est GFR (Non-Af Amer) > 60 06/10/16 15:15 Blood Blood Culture - Final Mrsa (Meth Resis Staph Aureus) Impressions: Chest CT 06/07/16 00:00 IMPRESSION: Post therapeutic changes in the left hemithorax. New area of consolidation in the right lower lobe worrisome for focal pneumonia. This should be followed to radiographic clearing Hip X-Ray 06/07/16 00:00 IMPRESSION: No acute fracture. Chest X-Ray 06/07/16 12:12 IMPRESSION: CARDIAC ENLARGEMENT. VASCULAR CONGESTION. ASYMMETRIC HAZY DENSITY IN THE LEFT HEMITHORAX PROBABLY DUE TO MILD ASYMMETRIC PULMONARY EDEMA AND/OR PLEURAL EFFUSION. Renal Ultrasound 06/08/16 00:00 IMPRESSION: No acute findings; limited. Assessment & Plan - Diagnosis (1) Pneumonia Qualifiers: Pneumonia type: due to unspecified organism Laterality: unspecified laterality Lung location: unspecified part of lung Qualified Code(s) : J18.9 - Pneumonia, unspecified organism Is this a current diagnosis for this admission?: YesPlan: He is growing MRSA from her cultures. It's not clear whether this pneumonia but most likely is from her port. We'll continue with the antibiotics of vancomycin and Levaquin. She will have her Mediport removed today. Will need PICC line placement with 4 weeks of IV antibiotics. (2) ARF (acute renal failure) Qualifiers: Acute renal failure type: unspecified Qualified Code(s): N17.9 - Acute kidney failure, unspecified Is this a current diagnosis for this admission?: YesPlan: Resolved. (3) Chronic CHF Qualifiers: Congestive heart failure type: diastolic Qualified Code(s): I50.32 - Chronic diastolic (congestive) heart failure Is this a current diagnosis for this admission?: YesPlan: Patient is euvolemic currently. (4) Diabetes mellitus Qualifiers: Diabetes mellitus type: type 2 Diabetes mellitus complication status: with unspecified complications Diabetes mellitus terminal gauger insulin use: with longterm use Qualified Code(s): E11.8 - Type 2 diabetes mellitus with unspecified complications; Z79.4 - alf (current) use of insulin Is this a current diagnosis for this admission?: YesPlan: Continue with sliding scale coverage. (5) GERD (gastroesophageal reflux disease) Qualifiers: Esophagitis presence: without esophagitis Qualified Code(s): K21.9 - Gastro-esophageal reflux disease without esophagitis Is this a current diagnosis for this admission?: YesPlan: Asymptomatic (6) Hyperlipidemia Qualifiers: Hyperlipidemia type: unspecified Qualified Code(s): E78.5 - Hyperlipidemia, unspecified Is this a current diagnosis for this admission?: Yes (7) Hypokalemia Is this a current diagnosis for this admission?: YesPlan: Resolved. (8) Hypomagnesemia Is this a current diagnosis for this admission?: Yes (9) Lung cancer Qualifiers: Laterality: unspecified laterality Lung location: unspecified part of lung Qualified Code(s): C34.90 - Malignant neoplasm of unspecified part of unspecified bronchus or lung Is this a current diagnosis for this admission?: YesPlan: Has had chemotherapy (10) Obstructive sleep apnea Is this a current diagnosis for this admission?: Yes (11) Anemia Qualifiers: Anemia type: unspecified type Qualified Code(s): D64.9 - Anemia, unspecified Is this a current diagnosis for this admission?: YesPlan: Hemoglobin has remained stable. (12) COPD (chronic obstructive pulmonary disease) Qualifiers: COPD type: emphysema Emphysema type: unspecified Qualified Code( s): J43.9 - Emphysema, unspecified Is this a current diagnosis for this admission?: YesPlan: She is currently on prednisone and inhalers. (13) Full code status Is this a current diagnosis for this admission?: Yes (14) Hypertension Qualifiers: Hypertension type: essential hypertension Qualified Code(s): I10 - Essential (primary) hypertension Is this a current diagnosis for this admission?: YesPlan: Continue metoprolol. (15) Morbid obesity with BMI of 45.0-49.9, adult Is this a current diagnosis for this admission?: Yes - Time Time Spent with patient: 15-24 minutes - Inpatient Certification Medical Necessity: Need for IV Antibiotics
[2016-06-13] MEDS ORDERED: LIDOCAINE 1% INJ-PF (10 MG/ML) 30 ML SDV INJ PRN (14:45)
--- NOTE | 2016-06-13 17:37 | XCELERA REPORT ---
[address] [address] Transthoracic Echocardiogram Report Name: SAL MEDEL Age: 65 yrs Gender: Female : 1950 Patient Status: Inpatient Patient Location: [id number]\S\A Study Date: 06/13/2016 01:46 PM Height: 64 in Weight: 264 lb BSA: 2.2 m2 Procedure: A two-dimensional transthoracic echocardiogram with color flow and Doppler was performed. Study Quality: Technically suboptimal. The study was technically difficult with many images being suboptimal in quality. Reason For Study: Bacteremia w/ MRSA History: Bacteremia w/ MRSA. Ordering Physician: SHA FITCH Performed By: Neelam Skinner Interpretation Summary Recommend RONEY if endocarditis is suspected.. The left ventricle is normal in size. There is normal left ventricular wall thickness. LV EF is > than 60% Left ventricular systolic function is normal. Doppler measurements suggest impaired left ventricular relaxation, which is associated with grade I/IV or mild diastolic dysfunction The left ventricular wall motion is normal. The right ventricle is grossly normal size. The left atrial size is normal. There is no evidence of mitral valve prolapse. There is no mitral valve stenosis. There is a trace to mild amount of mitral regurgitation There is no aortic valve stenosis There is no LVOT obstruction. There is aortic sclerosis without stenosis. No aortic regurgitation is present. There is no tricuspid stenosis. There is a trace amount of tricuspid regurgitation Unable to calculate RVSP due to insufficient TR jet. There is no pericardial effusion. Recommend RONEY if endocarditis is suspected.. MMode/2D Measurements \T\ Calculations RVDd: 2.7 cm LVIDd: 4.1 cm FS: 35.3 % Ao root diam: 3.4 cm IVSd: 1.1 cm LVIDs: 2.6 cm EDV(Teich): 72.3 ml LVPWd: 1.1 cm ESV(Teich): 25.1 ml Ao root area: 8.9 cm2 EF(Teich): 65.2 % LA dimension: 3.1 cm LVOT diam: 2.2 cm LVOT area: 3.8 cm2 Doppler Measurements \T\ Calculations MV E max justina: MV P1/2t max justina: Ao V2 max: LV V1 max P.1 cm/sec 106.1 cm/sec 183.3 cm/sec 4.9 mmHg MV A max justina: MV P1/2t: 48.8 msec Ao max PG: LV V1 max: 126.9 cm/sec MVA(P1/2t): 4.5 cm2 13.4 mmHg 110.6 cm/sec MV E/A: 0.84 MV dec slope: EMMA(V,D): 2.3 cm2 636.7 cm/sec2 MV dec time: 0.17 sec PA V2 max: 100.7 cm/sec PA max P.1 mmHg Left Ventricle The left ventricle is normal in size. There is normal left ventricular wall thickness. LV EF is > than 60%. Left ventricular systolic function is normal. Doppler measurements suggest impaired left ventricular relaxation, which is associated with grade I/IV or mild diastolic dysfunction. The left ventricular wall motion is normal. There is no thrombus. Right Ventricle The right ventricle is grossly normal size. The right ventricle is not well visualized secondary to technical limitations. Atria The right atrium is normal. The left atrial size is normal. Mitral Valve There is no evidence of mitral valve prolapse. There is no vegetation seen on the mitral valve. There is no mitral valve stenosis. There is a trace to mild amount of mitral regurgitation. Aortic Valve There is no aortic valvular vegetation. There is no aortic valve stenosis. There is no LVOT obstruction. There is aortic sclerosis without stenosis. No aortic regurgitation is present. Tricuspid Valve There is no tricuspid stenosis. There is a trace amount of tricuspid regurgitation. Unable to calculate RVSP due to insufficient TR jet. Pulmonic Valve There is no pulmonic valvular stenosis. There is a trace amount of pulmonic regurgitation. Great Vessels The aortic root is normal size. Effusions There is no pericardial effusion. : SHA FITCH > Zohra Echeverria
[2016-06-13] MEDS: INSULIN REG, HUMAN 100 UNIT/ML 3 ML VIAL (PYX) SUBCUT PRN (18:11)
[2016-06-13] MEDS: NORMAL SALINE 10 ML SDV (SCHEDULED) IV SCH (21:47)
[2016-06-14] MEDS: METOPROLOL TARTRATE 25 MG TABLET PO SCH ×3 (00:16→14:20)
[2016-06-14] MEDS: IPRATROPIUM/ALBUTEROL 0.5-2.5 MG/3 ML AMPUL NEB SCH ×3 (02:33→13:44)
[2016-06-14] MEDS: HYDROCODONE/ACETAMINOPHEN 5-325 MG TABLET PO PRN ×2 (03:05→09:05)
[2016-06-14] MEDS: LANSOPRAZOLE 30 MG TAB.RAP.DR PO SCH (05:38)
[2016-06-14] MEDS: HEPARIN SOD (PORCINE) 5,000 UNIT/ML 1 ML SYRINGE SUBCUT SCH ×2 (05:43→14:21)
[2016-06-14] MEDS: NORMAL SALINE 10 ML SDV (AFTER EACH USE) IV PRN ×2 (05:43→14:14)
[2016-06-14 06:49] LABS: HEMATOCRIT 25.1 % (36.0-47.0); HEMOGLOBIN 8.2 g/dL (12.0-15.5); HGB HCT DIFFERENCE -0.5; MEAN CORPUSCULAR HEMOGLOBIN 28.5 pg (27.0-33.4); MEAN CORPUSCULAR HGB CONC 32.6 g/dL (32.0-36.0); MEAN CORPUSCULAR VOLUME 87 fl (80-97); RED BLOOD COUNT 2.87 10^6/uL (3.72-5.28); RED CELL DISTRIBUTION WIDTH 20.3 % (11.5-14.0); WHITE BLOOD COUNT 12.8 10^3/uL (4.0-10.5)
[2016-06-14 06:56] LABS: ANION GAP 8 (5-19); BLOOD UREA NITROGEN 14 mg/dL (7-20); CALCIUM 8.5 mg/dL (8.4-10.2); CARBON DIOXIDE 34 mmol/L (22-30); CHLORIDE 104 mmol/L (98-107); CREATININE RESULT 0.66 mg/dL (0.52-1.25); GLUCOSE 98 mg/dL (75-110); MAGNESIUM 1.3 mg/dL (1.6-2.3); POTASSIUM 3.6 mmol/L (3.6-5.0); SODIUM 145.7 mmol/L (137-145)
[2016-06-14 07:10] LABS: BASOPHILS % (MANUAL) 0 % (0-2); EOSINOPHILS % (MANUAL) 0 % (0-6); LYMPHOCYTES % (MANUAL) 6 % (13-45); TOTAL CELLS COUNTED 100
[2016-06-14 07:11] LABS: ANISOCYTOSIS 3+; HYPOCHROMASIA 1+; POIKILOCYTOSIS SLIGHT
[2016-06-14 07:12] LABS: OVALOCYTES SLIGHT
[2016-06-14] MEDS: VANCOMYCIN HCL 1,500 MG in DEXTROSE 5%-WATER 250 ML IV SCH (09:04)
[2016-06-14] MEDS: PREDNISONE 20 MG TABLET PO SCH (09:05)
[2016-06-14] MEDS: GABAPENTIN 300 MG CAPSULE PO SCH (09:05)
[2016-06-14] MEDS: ASPIRIN 81 MG TABLET, ENT COATED PO SCH (09:05)
[2016-06-14] MEDS: GUAIFENESIN 600 MG TABLET.SA PO SCH (09:05)
[2016-06-14] MEDS: INSULIN DETEMIR 100 UNIT/ML 3 ML PEN SUBCUT SCH (09:06)
[2016-06-14] MEDS: NORMAL SALINE 10 ML SDV (SCHEDULED) IV SCH (09:16)
[2016-06-14 12:14] VITALS: BP 124/63
--- NOTE | 2016-06-14 13:46 | PDOC DISCHARGE SUMMARY ---
General - Admit/Disc Date/PCP Admission Date/Primary Care Provider: 06/07/16 17:08 MARQUIS JADE Discharge Date: 06/14/16 - Discharge Diagnosis (1) Pneumonia Is this a current diagnosis for this admission?: YesSummary: Positive blood cultures for MRSA. (2) ARF (acute renal failure) Is this a current diagnosis for this admission?: YesSummary: Resolved. (3) Chronic CHF Is this a current diagnosis for this admission?: Yes (4) Diabetes mellitus Is this a current diagnosis for this admission?: Yes (5) GERD (gastroesophageal reflux disease) Is this a current diagnosis for this admission?: Yes (6) Hyperlipidemia Is this a current diagnosis for this admission?: Yes (7) Hypokalemia Is this a current diagnosis for this admission?: Yes (8) Hypomagnesemia Is this a current diagnosis for this admission?: Yes (9) Lung cancer Is this a current diagnosis for this admission?: Yes (10) Obstructive sleep apnea Is this a current diagnosis for this admission?: Yes (11) Anemia Is this a current diagnosis for this admission?: Yes (12) COPD (chronic obstructive pulmonary disease) Is this a current diagnosis for this admission?: Yes (13) Full code status Is this a current diagnosis for this admission?: Yes (14) Hypertension Is this a current diagnosis for this admission?: Yes (15) Morbid obesity with BMI of 45.0-49.9, adult Is this a current diagnosis for this admission?: Yes - Additional Information Discharge Diet: Diabetic Discharge Activity: Activity As Tolerated Home Medications: Aspirin [Ecotrin 81 mg EC Tablet] 81 mg PO DAILY 06/07/16 Canagliflozin [Invokana] 100 mg PO ACBRKFST 06/07/16 Febuxostat [Uloric 80 mg Tablet] 80 mg PO DAILY 06/07/16 Furosemide [Lasix 40 mg Tablet] 40 mg PO QAM 06/07/16 Gabapentin 300 mg PO Q12 06/07/16 Insulin Detemir [Levemir Flextouch] 30 units SQ DAILY 06/07/16 Ipratropium/Albuterol Sulfate [Iprat-Albut 0.5-3(2.5) mg/3 ml] 3 ml NEB Q4HP PRN 06/07/16 Lisinopril [Zestril] 2.5 mg PO DAILY 06/07/16 Potassium Chloride [Klor-Con 10 Meq Tablet.sa] 20 meq PO Q12 06/07/16 Hydrocodone/Acetaminophen [Hydrocodon-Acetaminophen 5-325] 1 tab PO Q4HP PRN # 30 tablet 06/14/16 Metoprolol Tartrate [Lopressor 25 mg Tablet] 12.5 mg PO Q12 #60 tablet 06/14/16 Prednisone 10 mg PO DAILY #21 tablet 06/14/16 Tramadol HCl [Ultram 50 mg Tablet] 25 mg PO Q6HP PRN #30 tablet 06/14/16 Vancomycin/0.9 % Sod Chloride [Vanco 1.5 gm/250 ml-0.9% NaCl] 1.5 gm IV DAILY # 21 plast..bag 06/14/16 History of Present Illness History of Present Illness: SAL MEDEL is a 65 year old female with lung cancer has been getting chemotherapy. She presented to the oncologist for her chemotherapy and she was noted to be hypotensive and tachycardic consistent with diagnosis of sepsis. Patient was found to have a pneumonia. She was given IV fluids and her blood pressure responded. Hospital Course Hospital Course: Patient was treated with broad-spectrum antibiotics and eventually grew out MRSA from her blood cultures. It's not clear whether the MRSA is truly from her pneumonia or whether she has an infected Mediport. The patient had an echocardiogram that was negative for any endocarditis. Because of this it was felt that she needed 4 weeks of IV vancomycin. The patient will complete 4 weeks of vancomycin on 07/05/2015. The ages Mediport was removed and a PICC line was placed. The patient will finish up IV antibiotics with home health. The patient also presented with acute renal failure and had a renal ultrasound that was unremarkable. Her acute renal failure responded to IV fluids. The patient is going to be moving in with her daughter and she lives out of town and she will be transferring her healthcare to her daughter's physician. Physical Exam Vital Signs: Temp Pulse Resp BP Pulse Ox 98.0 F 95 18 124/63 97 06/14/16 11:37 06/14/16 11:37 06/14/16 11:37 06/14/16 11:37 06/14/16 12:00 Pulse Oximeter Continuous Start: 06/07/16 17: 09 Freq: RTQ4 Status: Active Document 06/14/16 12:00 [facility] (Rec: 06/14/16 12:33 [facility] [email or web address]) Pulse Oximetry Assessment Oxygen Saturation (92-100) 97 Oxygen Flow Rate (L/min) 2 Oxygen Delivery Method Nasal Cannula Equipment Usage Equipment in Use Continuous SpO2 Machine # 7 Intake & Output 06/13/16 06/14/16 06/15/16 06:59 06:59 06:59 Intake Total 2298 2328 Output Total 928 018 Balance 1373 1478 Weight 122 kg 122 kg General appearance: PRESENT: no acute distress Eye exam: PRESENT: conjunctiva pink Mouth exam: PRESENT: moist, tongue midline Neck exam: ABSENT: JVD Respiratory exam: PRESENT: clear to auscultation jay jay. ABSENT: rales, rhonchi, wheezes Cardiovascular exam: PRESENT: RRR. ABSENT: diastolic murmur, rubs, systolic murmur GI/Abdominal exam: PRESENT: normal bowel sounds, soft. ABSENT: distended, guarding, mass, organolmegaly, rebound, tenderness Extremities exam: ABSENT: calf tenderness, clubbing, pedal edema Neurological exam: PRESENT: alert, awake, oriented to person, oriented to place , oriented to time, oriented to situation Psychiatric exam: PRESENT: appropriate affect Skin exam: PRESENT: dry, intact, warm. ABSENT: cyanosis, rash Results Laboratory Results: 06/14/16 05:45 06/14/16 05:45 06/14/16 06/14/16 05:45 05:45 WBC 12.8 H RBC 2.87 L Hgb 8.2 L Hct 25.1 L MCV 87 MCH 28.5 MCHC 32.6 RDW 20.3 H Plt Count 154 Seg Neutrophils % Not Reportable Lymphocytes % Not Reportable Monocytes % Not Reportable Eosinophils % Not Reportable Basophils % Not Reportable Absolute Neutrophils Not Reportable Absolute Lymphocytes Not Reportable Absolute Monocytes Not Reportable Absolute Eosinophils Not Reportable Absolute Basophils Not Reportable Sodium 145.7 H Potassium 3.6 Chloride 104 Carbon Dioxide 34 H Anion Gap 8 BUN 14 Creatinine 0.66 Est GFR ( Amer) > 60 Est GFR (Non-Af Amer) > 60 Glucose 98 Calcium 8.5 Magnesium 1.3 L 06/13/16 17:30 Chest - Left Side Gram Stain - Final 06/10/16 15:15 Blood Blood Culture - Final Mrsa (Meth Resis Staph Aureus) Impressions: Chest CT 06/07/16 00:00 IMPRESSION: Post therapeutic changes in the left hemithorax. New area of consolidation in the right lower lobe worrisome for focal pneumonia. This should be followed to radiographic clearing Hip X-Ray 06/07/16 00:00 IMPRESSION: No acute fracture. Chest X-Ray 06/07/16 12:12 IMPRESSION: CARDIAC ENLARGEMENT. VASCULAR CONGESTION. ASYMMETRIC HAZY DENSITY IN THE LEFT HEMITHORAX PROBABLY DUE TO MILD ASYMMETRIC PULMONARY EDEMA AND/OR PLEURAL EFFUSION. Renal Ultrasound 06/08/16 00:00 IMPRESSION: No acute findings; limited. Guidance Fluoroscopy 06/13/16 00:00 IMPRESSION: SUCCESSFUL PLACEMENT OF A 5 FR dual LUMEN 42 CM PICC IN THE right basilic VEIN. Interventional Vascular Procedure 06/13/16 00:00 IMPRESSION: SUCCESSFUL PLACEMENT OF A 5 FR dual LUMEN 42 CM PICC IN THE right basilic VEIN. PICC Line Insertion 06/13/16 00:00 IMPRESSION: SUCCESSFUL PLACEMENT OF A 5 FR dual LUMEN 42 CM PICC IN THE right basilic VEIN. Qualifiers PATEINT BEING DISCHARGED WITH ANY OF THE FOLLOWING DIAGNOSIS?: No Plan Discharge Plan: Patient is discharged home health to complete antibiotics in the form of vancomycin. Patient scheduled 1.5 gm daily, last dose to be given 07/05/2015. Time Spent: Greater than 30 Minutes
[2016-06-14] MEDS: LEVOFLOXACIN 750 MG TABLET PO SCH (14:21)
== END 2016-06-14 14:45 | disposition home health service (06) | DRG 871 ==
LOC: ER 11:54 → EH 15:12 → UNDOADMIN 15:12 → EH 17:08 → 3S 06-08 15:55
PROC: 30233N1 Transfusion of Nonautologous Red Blood Cells into Peripheral Vein, Percutaneous Approach (ICD-10-PCS; 2016-06-08)
PROC: 02HV33Z Insertion of Infusion Device into Superior Vena Cava, Percutaneous Approach (ICD-10-PCS; principal; 2016-06-13)
PROC: B548ZZA Ultrasonography of Superior Vena Cava, Guidance (ICD-10-PCS; 2016-06-13)
DX: A41.9 Sepsis, unspecified organism (principal); J18.9 Pneumonia, unspecified organism; J96.21 Acute and chronic respiratory failure with hypoxia; N18.6 End stage renal disease; N17.9 Acute kidney failure, unspecified; I13.2 Hypertensive heart and chronic kidney disease with heart failure and with stage 5 chronic kidney disease, or end stage renal disease; I50.32 Chronic diastolic (congestive) heart failure; C34.90 Malignant neoplasm of unspecified part of unspecified bronchus or lung; Z68.42 Body mass index [BMI] 45.0-49.9, adult; E11.9 Type 2 diabetes mellitus without complications; K21.9 Gastro-esophageal reflux disease without esophagitis; E78.5 Hyperlipidemia, unspecified; E87.6 Hypokalemia; E83.42 Hypomagnesemia; G47.33 Obstructive sleep apnea (adult) (pediatric); D64.9 Anemia, unspecified; J44.9 Chronic obstructive pulmonary disease, unspecified; M10.9 Gout, unspecified; M25.552 Pain in left hip; E66.01 Morbid (severe) obesity due to excess calories; Z79.82 Long term (current) use of aspirin; Z79.899 Other long term (current) drug therapy; Z79.4 Long term (current) use of insulin
CPT/HCPCS: 36415; 36430; 36569; 36591; 36600; 71010; 71250; 73522; 76770; 76937; 77001; 80048; 80053; 80202; 81001; 82550; 82553; 82565; 82607; 82728; 82746; 82803; 82962; 83540; 83550; 83605; 83735; 84484; 85025; 85027; 85045; 85610; 86850; 86900; 86901; 86920; 87040; 87070; 87075; 87077; 87086; 87186; 87205; 93005; 93010; 93306; 94660; 94762; 96365; 96367; 96368; 96375; 99291; 99292; C1769; G8978-GP; G8979-GP; J0692; J1642; J1644; J1815; J1940; J1956; J2930; J2997; J3370; J3475; J3490; J7030; J7060; J7512; J7620; P9016